=== PATIENT | female | born 1950 | race Caucasian/White ===

== ENCOUNTER → 2016-09-14 | Outpatient (REF) | payer MEDICARE | LOC: M LAB REF 13:23 | PROVIDERS: ATTEND Internal Medicine Medical Oncology | DX: C34.90 Malignant neoplasm of unspecified part of unspecified bronchus or lung (principal); Z79.899 Other long term (current) drug therapy ==

== ENCOUNTER 2017-10-03 09:28 | Outpatient (CLI) | payer MEDICARE, OTHER ==
[2017-10-03] MEDS: SODIUM CHLORIDE 0.9% INJ 10 ML SYR IV (09:53)
== END 2017-10-03 10:00 | disposition home or self-care (01) ==
LOC: M INFU 09:28
DX: Z85.118 Personal history of other malignant neoplasm of bronchus and lung (principal); Z79.82 Long term (current) use of aspirin; Z79.899 Other long term (current) drug therapy
CPT/HCPCS: 96523

== ENCOUNTER → 2020-06-26 | Outpatient (REF) | payer MEDICARE, OTHER ==
[~2020-06-26] MED LIST: ANOR1AER PO; ARMO180T PO; ASPI325T57 PO; CALC500T60 PO; D400400C PO; DICL1GEL3 TD; DUEX800T PO; EMLA2.5C; FLUO1SOL EX; PROV108A INH; REST30CA PO; SILV1CRE60 TOP; SYMB16INH INH; ULTR50TA8 PO; XARE20TA PO; ZETI10TA16 PO
[2020-06-26 17:47] LABS: BACTERIA, URINE AUTO NEGATIVE (NEGATIVE); MUCUS, URINE SMALL (NEGATIVE); RBC, URINE AUTO 6 /HPF (0-3); SQUAMOUS EPITHELIAL CELL UR AU 1 /HPF (0-6); WBC, URINE AUTO 4 /HPF (0-3)
== END ==
LOC: M SMT 17:03
PROVIDERS: ATTEND Specialist
DX: R39.15 Urgency of urination (principal); R35.0 Frequency of micturition; R39.14 Feeling of incomplete bladder emptying
CPT/HCPCS: 51798; 87086; G0463

== ENCOUNTER → 2020-07-11 | Outpatient (CLI) | payer MEDICARE, OTHER ==
[~2020-07-11] MED LIST changes: +ISOVUE-370 76% 100ML VIAL As Ordered ONE
--- NOTE | 2020-07-11 14:21 | REP ---
INDICATION: LUNG CA. COMPARISON: None TECHNIQUE: Axial contrast-enhanced images from the lung bases to the pubic symphysis using 100 cc Isovue 370 intravenous contrast material. Delayed images of the abdomen obtained along with coronal and sagittal reformations. This CT examination was performed using the following dose reduction techniques: Automated exposure control, adjustment of mA and/or kv according to the patient's size, and the use of iterative reconstruction technique. FINDINGS: Liver, spleen, pancreas, gallbladder, bilateral adrenal glands and right kidney are normal. Incidental 1 cm left renal cyst noted. The enteric system including stomach, small, and large bowel appears normal. No evidence for obstruction or acute inflammatory process. Normal terminal ileum and appendix are identified in the right lower quadrant. Sigmoid diverticulosis noted without acute diverticulitis. Pelvis demonstrates normal bladder and evidence for prior hysterectomy. No ascites. No free air. No intraperitoneal or retroperitoneal adenopathy. Abdominal aorta and vasculature demonstrate atherosclerotic changes without aneurysm or dissection. Musculoskeletal structures are intact and without acute osseous abnormality. IMPRESSION: No acute abdominopelvic pathology appreciated. Diverticulosis without acute diverticulitis. 1 cm left renal cyst. No ascites, focal inflammatory stranding, or adenopathy. <Electronically signed by Kennedy Wu > 07/11/20 [id number]
--- NOTE | 2020-07-11 14:23 | REP ---
INDICATION: LUNG CA. COMPARISON: None. TECHNIQUE: Axial CT images with multiplanar reformations. FINDINGS: The oropharynx, nasopharynx, hypopharynx and larynx are unremarkable. No mass lesions or evidence of lymphadenopathy. No evidence of osseous metastases. There is mucosal retention cyst at the floor of the right maxillary sinus, paranasal sinuses and mastoid air cells are clear. There is degenerative change with slight anterolisthesis of C3 over C4. No high-grade canal stenosis. Osteophytes narrow the neural foramen, greater on the left, mild and [id number]. Facet hypertrophy noted at C3-4 on the left and C4-5 on the left. The vertebral arteries are codominant codominant and present throughout their cervical course. The common and internal carotid arteries widely patent. No evidence of a carotid stenosis. Severe emphysematous changes are seen at the lung apices bilaterally. IMPRESSION: No mass lesions or abnormal enhancement. No lymphadenopathy. No osseous metastases. Degenerative changes of the cervical spine. Emphysema. <Electronically signed by Victoriano Rojas > 07/11/20 [id number]
== END ==
LOC: M RAD 13:41
PROVIDERS: ATTEND Specialist
DX: C34.90 Malignant neoplasm of unspecified part of unspecified bronchus or lung (principal); M50.320 Other cervical disc degeneration, mid-cervical region, unspecified level; J43.9 Emphysema, unspecified; K57.30 Diverticulosis of large intestine without perforation or abscess without bleeding; N28.1 Cyst of kidney, acquired
CPT/HCPCS: 70491; 71260; 74177; Q9967

== ENCOUNTER → 2020-08-20 | Outpatient (REF) | payer MEDICARE, OTHER ==
[~2020-08-20] MED LIST changes: -ISOVUE-370 76% 100ML VIAL As Ordered ONE
[2020-08-20 18:17] LABS: HEMATOCRIT 41.5 % (36.0-47.0); HEMOGLOBIN 13.2 g/dl (12.0-15.5); MEAN CORPUSCULAR HEMOGLOBIN 30.9 pg (27.0-33.0); MEAN CORPUSCULAR HGB CONC 31.8 g/dl (32.0-36.5); MEAN CORPUSCULAR VOLUME 97.2 fl (80.0-96.0); PLATELET COUNT, AUTOMATED 223 10^3/uL (150-450); RED BLOOD COUNT 4.27 10^6/uL (4.00-5.40); WHITE BLOOD COUNT 4.9 10^3/uL (4.0-10.0)
[2020-08-20 18:57] LABS: ALBUMIN 3.7 GM/DL (3.2-5.2); ALT/SGPT 20 U/L (12-78); BILIRUBIN,TOTAL 0.4 MG/DL (0.2-1.0); BLOOD UREA NITROGEN 18 MG/DL (7-18); CALCIUM LEVEL 9.8 MG/DL (8.8-10.2); CARBON DIOXIDE LEVEL 30 MEQ/L (21-32); CHLORIDE LEVEL 107 MEQ/L (98-107); CREATININE FOR GFR 1.06 MG/DL (0.55-1.30); GLOMERULAR FILTRATION RATE 54.6 (>39); GLUCOSE, FASTING 87 MG/DL (70-100); SODIUM LEVEL 142 MEQ/L (136-145); THYROID STIMULATING HORMONE < 0.005 uIU/ML (0.358-3.740); TOTAL 25(OH) VITAMIN D 79.9 NG/ML (30.0-100.0); TOTAL PROTEIN 7.1 GM/DL (6.4-8.2); VITAMIN B12 LEVEL 262 PG/ML
[2020-08-20 18:58] LABS: FOLATE 12.4 NG/ML
== END ==
LOC: M SFHCADAM 11:40
PROVIDERS: ATTEND Physician Assistant
DX: M81.0 Age-related osteoporosis without current pathological fracture (principal); E03.9 Hypothyroidism, unspecified; J44.9 Chronic obstructive pulmonary disease, unspecified; C67.9 Malignant neoplasm of bladder, unspecified

== ENCOUNTER → 2020-08-25 | Outpatient (REF) | payer MEDICARE, OTHER ==
[~2020-08-25] MED LIST changes: +GLYCCAP PO; +OXYB10TA23 PO
== END ==
LOC: M SMT 19:06
PROVIDERS: ATTEND Urology
DX: C67.9 Malignant neoplasm of bladder, unspecified (principal)

== ENCOUNTER → 2020-09-09 | Outpatient (POV) | payer MEDICARE, OTHER ==
[~2020-09-09] VITALS: Ht 177.8 cm; Wt 61.4 kg
[2020-09-09 11:09] VITALS: BP 146/70
--- NOTE | 2020-09-10 14:15 | IRCOV ---
[facility] IR Consult Office Visit IR Consult Office Visit DATE: Sep 09, 2020 REASON FOR CONSULTATION/CHIEF COMPLAINT: Port removal. HISTORY OF PRESENT ILLNESS: 70-year-old female with prior history of lung cancer, is referred for port removal. Patient reports her port was placed at an outside hospital, in [place] in 2016. She states the port worked fine. She does still get regular flushes. No issues with the port. Her last chemotherapy was in 2017. No further therapy is planned. She sees Dr. Le and he is aware that she would like the port removed. Incidentally, patient was recently diagnosed with bladder cancer and is undergoing therapy. 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 She denies prior history of PE. ALLERGIES: Please see below. HOME MEDICATIONS: Please see below. PAST MEDICAL HISTORY: Hypercholesterolemia Hypothyroidism DVT Cerebral aneurysm Torn meniscus PAST SURGICAL HISTORY: Right chest port placed at outside hospital in 2016 Right foot surgery Hysterectomy Clipping of brain aneurysm FAMILY HISTORY: Noncontributory. SOCIAL HISTORY: Ex-smoker. Quit in 2012. Denies alcohol or drugs. REVIEW OF SYSTEMS: Otherwise negative. PHYSICAL EXAMINATION: VITAL SIGNS: Please see below. GENERAL APPEARANCE: Patient has recently lost her . She is distraught and tearful. HEENT: No scleral icterus. RESPIRATORY: Normal breathing at rest. CARDIOVASCULAR: Normal rate. Right chest port in place. No cellulitis. ABDOMEN: Non-distended. EXTREMITIES: No edema. NEUROLOGICAL: Alert and oriented. PSYCHIATRIC: Appropriate to circumstance. LABORATORY DATA: 09/01/2020 hemoglobin 12.6 hematocrit 39.1 WBC 4.1 platelets 208 sodium 142 potassium 4.4 BUN 16 creatinine 0.8 GFR greater than 60 INR 1.2 IMAGING: I personally reviewed the CT chest and CT neck from 07/11/2020. Right- sided IJ port in place. ASSESSMENT/PLAN: 70-year-old female with history of lung cancer and now bladder cancer, status post port placement at outside facility in 2016. Patient no longer follows with her surgeon and would like for us to remove this port. We discussed the risks and benefits of the procedure and patient is willing to proceed. We will schedule the patient for port removal. Patient will need to stop her Xarelto for 48 hours for this procedure, however she must clear this with the prescriber prior to stopping any blood thinning medication. I spent 30 minutes reviewing patient's records, imaging and in consultation with the patient. Thank you for this referral. Cc Dr. Le Allergies Coded Allergies: No Known Allergies (Unverified , 10/03/17) Home Medications Scheduled Budesonide/Formoterol (Symbicort 160-4.5 Mcg Inhaler), 2 PUFF INH BID, (Reported) Calcium Carbonate (Calcium Carbonate), 1,250 MG PO DAILY, (Reported) Cholecalciferol (Vitamin D3) (Vitamin D3), 1 CAP PO DAILY, (Reported) Ezetimibe (Zetia), 1 TAB PO DAILY, (Reported) Fluocinonide (Fluocinonide), 0.05 % EX BID, (Reported) Oxybutynin Chloride (Oxybutynin Chloride ER), 10 MG PO DAILY, (Reported) Rivaroxaban (Xarelto), 1 TAB PO DAILY, (Reported) Thyroid,Pork ([place] Thyroid), 1 TAB PO DAILY, (Reported) Vit B12/Folic Acid/B6/Aa No.15 (Glycotrol Capsule), 1 CAP PO DAILY, (Reported) Scheduled PRN Albuterol Sulfate (Proventil Hfa), 2 PUFF INH Q4H PRN for SOB/WHEEZING, (Reported) Temazepam (Restoril), 30 MG PO QPMP PRN for sleep, (Reported) Miscellaneous Medications [Emla], (Reported) VS, I&O, 24H, Fishbone Vital Signs/I&O Vital Signs Date Time Temp Pulse Resp B/P (MAP) Pulse Ox O2 Delivery O2 Flow Rate FiO2 09/09/20 11:09 98.9 90 20 146/70 (95) 97 Room Air PITER GONZALEZ MD Sep 10, 2020 14:15
== END ==
LOC: M IRPOV 10:45
PROVIDERS: ATTEND Radiology Diagnostic Radiology
DX: Z45.2 Encounter for adjustment and management of vascular access device (principal); C67.9 Malignant neoplasm of bladder, unspecified; E03.9 Hypothyroidism, unspecified; E78.00 Pure hypercholesterolemia, unspecified; Z79.01 Long term (current) use of anticoagulants; Z79.890 Hormone replacement therapy; Z79.899 Other long term (current) drug therapy; Z85.118 Personal history of other malignant neoplasm of bronchus and lung; Z86.718 Personal history of other venous thrombosis and embolism; Z87.891 Personal history of nicotine dependence; Z90.710 Acquired absence of both cervix and uterus; Z92.21 Personal history of antineoplastic chemotherapy

== ENCOUNTER → 2020-09-26 | Outpatient (REF) | payer MEDICARE, OTHER ==
[~2020-09-26] MED LIST changes: +CALC-190 PO; +CLIN1SOL TOP; +EQL50TAB2 PO; +LACT1TAB9 PO; +LEVO750T13 PO; +PERCTAB2 PO; +SYMB80INH INH
[2020-09-26 13:04] LABS: HEMATOCRIT 44.5 % (36.0-47.0); HEMOGLOBIN 14.4 g/dl (12.0-15.5); MEAN CORPUSCULAR HGB CONC 32.4 g/dl (32.0-36.5); MEAN CORPUSCULAR VOLUME 95.9 fl (80.0-96.0); PLATELET COUNT, AUTOMATED 240 10^3/uL (150-450); RED BLOOD COUNT 4.64 10^6/uL (4.00-5.40); WHITE BLOOD COUNT 5.3 10^3/uL (4.0-10.0)
[2020-09-26 13:14] LABS: PARTIAL THROMBOPLASTIN TIME 31.5 SECONDS (24.2-38.5); PROTHROMBIN TIME 13.4 SECONDS (12.5-14.3)
[2020-09-26 13:17] LABS: APPEARANCE, URINE CLEAR (CLEAR); BACTERIA, URINE AUTO NEGATIVE (NEGATIVE); BILIRUBIN, URINE AUTO NEGATIVE (NEGATIVE); BLOOD, URINE BLOOD 1+ (NEGATIVE); COLOR, URINE YELLOW (YELLOW); GLUCOSE, URINE (UA) AUTO NEGATIVE (NEGATIVE); KETONE, URINE AUTO NEGATIVE (NEGATIVE); LEUKOCYTE ESTERASE, URINE AUTO TRACE (NEGATIVE); NITRITE, URINE AUTO NEGATIVE (NEGATIVE); PROTEIN, URINE AUTO NEGATIVE (NEGATIVE); RBC, URINE AUTO 2 /HPF (0-3); SPECIFIC GRAVITY URINE AUTO 1.013 (1.002-1.035); SQUAMOUS EPITHELIAL CELL UR AU 1 /HPF (0-6); UROBILINOGEN, URINE AUTO 0.2 mg/dL (0.0-2.0); WBC, URINE AUTO 3 /HPF (0-3)
[2020-09-26 13:38] LABS: ALT/SGPT 25 U/L (12-78); BILIRUBIN,TOTAL 0.4 MG/DL (0.2-1.0); BLOOD UREA NITROGEN 14 MG/DL (7-18); CALCIUM LEVEL 9.6 MG/DL (8.8-10.2); CARBON DIOXIDE LEVEL 28 MEQ/L (21-32); CHLORIDE LEVEL 106 MEQ/L (98-107); CREATININE FOR GFR 0.81 MG/DL (0.55-1.30); GLOMERULAR FILTRATION RATE > 60.0 (>39); GLUCOSE, FASTING 90 MG/DL (70-100); SODIUM LEVEL 140 MEQ/L (136-145); TOTAL PROTEIN 7.9 GM/DL (6.4-8.2)
== END ==
LOC: M SFHCADAM 11:26
PROVIDERS: ATTEND Physician Assistant
DX: Z01.818 Encounter for other preprocedural examination (principal); Z79.01 Long term (current) use of anticoagulants; Z79.899 Other long term (current) drug therapy
CPT/HCPCS: 80053; 81001; 85027; 85610; 85730; 87086; G0463

== ENCOUNTER → 2020-09-29 | Outpatient (CLI) | payer MEDICARE, OTHER ==
[~2020-09-29] MED LIST changes: -CALC-190 PO; -CLIN1SOL TOP; -EQL50TAB2 PO; -LACT1TAB9 PO; -LEVO750T13 PO; -PERCTAB2 PO; -SYMB80INH INH
== END ==
LOC: M LABSMTC 10:08
PROVIDERS: ATTEND Anesthesiology
DX: Z01.818 Encounter for other preprocedural examination (principal); Z11.52 Encounter for screening for COVID-19

== ENCOUNTER → 2020-10-02 | Outpatient (CLI) | payer MEDICARE, OTHER ==
[~2020-10-02] MED LIST changes: +CALC-190 PO; +LIDOCAINE 1% MDV 20ML VIAL As Ordered ONE; +MIDAZOLAM INJ 2MG/2ML VIAL (J2250 PER 1MG) As Ordered ONE; +NS 1,000 ML IV SCH; +ceFAZolin 2 GM/D5W 50 ML IV BAG (J0690 PER 500MG) As Ordered ONE; +ceFAZolin SOD 2 GM in IV 1 EA IV ONE; +diphenhydrAMINE 50MG/ML VIAL (J1200) As Ordered ONE; +fentaNYL 100 MCG/2 ML INJECTION (J3010) As Ordered ONE
--- NOTE | 2020-10-02 11:56 | IRHP ---
[facility] IR Pre-Procedure H & P General Date of Service: Oct 02, 2020 Procedure: Same Day Surgery Interval History and Physical I have seen the patient and reviewed last H & P performed within 30 days. There is no significant interval change. History of Present Illness Chief Complaint The patient is a 70-year-old female admitted with a reason for visit of Lung Ca. PRE-PROCEDURE DIAGNOSIS: Lung cancer. Treatment complete. HEART: Normal rate. LUNGS: Normal breathing at rest. ASA Classification ASA Classification: III-Severe systemic dis. Mallampati Score: II NPO: Yes Problems with prior sedation: No Obstructive Sleep Apnea: No Plan moderate sedation Allergies Coded Allergies: No Known Allergies (Unverified , 09/19/20) Home Medications Scheduled Budesonide/Formoterol (Symbicort 160-4.5 Mcg Inhaler), 2 PUFF INH BID, (Reported) Ezetimibe (Zetia), 1 TAB PO DAILY, (Reported) Oxybutynin Chloride (Oxybutynin Chloride ER), 10 MG PO DAILY, (Reported) Rivaroxaban (Xarelto), 1 TAB PO DAILY, (Reported) Thyroid,Pork ([place] Thyroid), 1 TAB PO DAILY, (Reported) Vit B12/Folic Acid/B6/Aa No.15 (Glycotrol Capsule), 1 CAP PO DAILY, (Reported) Scheduled PRN Albuterol Sulfate (Proventil Hfa), 2 PUFF INH Q4H PRN for SOB/WHEEZING, ( Reported) Temazepam (Restoril), 30 MG PO QPMP PRN for sleep, (Reported) VS, I&O, 24H, Fishbone Vital Signs/I&O Vital Signs Date Time Temp Pulse Resp B/P (MAP) Pulse Ox O2 Delivery O2 Flow Rate FiO2 10/02/20 11:50 71 18 100 Nasal Cannula 2.0 10/02/20 10:55 98.0 PITER GONZALEZ MD Oct 02, 2020 11:56
[2020-10-02 14:17] VITALS: BP 103/57
--- NOTE | 2020-10-06 14:55 | IRPON ---
IR Postoperative Note Date Of Procedure: Oct 02, 2020 Time Of Procedure: 16:00 IR Postoperative Note IR Port Removal / Explant. IR moderate sedation. Clinical Information:Lung cancer. Treatment complete. Patient would like her port removed. Physician: Dr. Martin Procedure: The patient was advised of the benefits, risks, and alternatives of the procedure and informed consent was obtained. A time out was performed with verification of the patient's name, MRN, site of procedure, and type of procedure to be performed. The patient was positioned in the supine position on the angiographic table. The site was prepped and draped in the usual sterile fashion. Moderate sedation was performed by the physician including the presence of an independent trained RN who assisted in monitoring the patient's level of consciousness and physiological status. Following the administration of fentanyl and Versed the physician spent 30 minutes of continuous [id number] time with the patient. A slab lifting supervisor radiograph reveals a right sided port. The soft tissues overlying the port were anesthetized with lidocaine. An incision was made over the port using a 15 blade scalpel in the location of the prior incision. The catheter was then freed with blunt dissection and extracted. Pressure was applied to obtain hemostasis. The port was then freed with blunt dissection and subsequently removed. There were no signs of infection. After hemostasis was achieved, the incision was closed with interrupted deep 3-0 Vicryl sutures and subcuticular Monocryl suture followed by glue and steri-strips. The site was covered with a sterile dressing. The patient tolerated the procedure well and was returned to the PRU in stable condition. EBL:Less than 5 mL Complications:None. Conclusions: 1. Successful explant of a right-sided port. 2. No signs of infection. Thank you for this referral PITER MARTIN MD Oct 06, 2020 14:55
== END ==
LOC: M IRPRO 10:49
PROVIDERS: ATTEND Radiology Diagnostic Radiology
DX: Z45.2 Encounter for adjustment and management of vascular access device (principal); C67.9 Malignant neoplasm of bladder, unspecified; E03.9 Hypothyroidism, unspecified; E78.00 Pure hypercholesterolemia, unspecified; Z79.01 Long term (current) use of anticoagulants; Z85.118 Personal history of other malignant neoplasm of bronchus and lung; Z86.718 Personal history of other venous thrombosis and embolism; Z92.21 Personal history of antineoplastic chemotherapy
CPT/HCPCS: 36590; 99152; 99153; J0690; J1200; J2250; J3010

== ENCOUNTER 2020-10-03 07:42 | Day surgery (SDC) | payer MEDICARE, OTHER ==
[~2020-10-03] VITALS: Ht 172.7 cm; Wt 62.5 kg
[~2020-10-03 07:42] MED LIST changes: +ACETAMINOPHEN 1000MG 100ML IV BTL (OFIRMEV) (J0131 PER 10MG) As Ordered ONE; -CALC-190 PO; -LIDOCAINE 1% MDV 20ML VIAL As Ordered ONE; +LIDOCAINE 1% MDV 20ML VIAL SQ PRN; +LIDOCAINE 2% 100MG/5ML SDV (FOR ANES.) As Ordered ONE; +LR 1,000 ML IV ONE; -NS 1,000 ML IV SCH; -ceFAZolin 2 GM/D5W 50 ML IV BAG (J0690 PER 500MG) As Ordered ONE; -diphenhydrAMINE 50MG/ML VIAL (J1200) As Ordered ONE; +propofoL 200 MG/20 ML VIAL As Ordered ONE
[2020-10-03] MEDS ORDERED: CALC-190 PO (08:01)
[2020-10-03] MEDS ORDERED: SUGAMMADEX SODIUM 500 MG/5 ML VIAL (BRIDION) As Ordered ONE (10:15)
[2020-10-03] MEDS ORDERED: dexameTHASONE 4 MG/ML 1ML VIAL (J1100 PER 1MG) As Ordered ONE (10:15)
[2020-10-03] MEDS ORDERED: ROCURONIUM BROMIDE 50 MG/5 ML VIAL As Ordered ONE (10:15)
[2020-10-03] MEDS ORDERED: ONDANSETRON 4MG/2ML VIAL As Ordered ONE (10:15)
[2020-10-03] MEDS ORDERED: ePHEDrine SULFATE 25 MG/5 ML(5MG/ML) SYRINGE As Ordered ONE (10:37)
[2020-10-03] MEDS ORDERED: PHENYLephrine 500MCG 5ML (100MCG/ML) SYRINGE As Ordered ONE (10:37)
[2020-10-03] MEDS ORDERED: ACETAMINOPHEN TAB 650MG DOSE (2X325MG) PO PRN (11:50)
[2020-10-03] MEDS ORDERED: METOCLOPRAMIDE INJ 10MG/2ML VIAL (J2765 PER 1) IV PRN (11:50)
[2020-10-03] MEDS ORDERED: fentaNYL 100 MCG/2 ML INJECTION (J3010) IV PRN (11:50)
[2020-10-03] MEDS ORDERED: LR 1,000 ML IV SCH (11:50)
[2020-10-03] MEDS ORDERED: ONDANSETRON 4MG/2ML VIAL IV PRN (11:50)
[2020-10-03] MEDS: PERCOCET 5MG/325MG TAB PO PRN ×2 (11:53→12:34)
[2020-10-03 14:30] VITALS: BP 108/56
--- NOTE | 2020-10-05 06:39 | RO ---
OPERATIVE NOTE DATE OF OPERATION: 10/03/2020 PREOPERATIVE DIAGNOSES: Bladder cancer. POSTOPERATIVE DIAGNOSIS: Bladder cancer. PROCEDURE: Cystoscopy, transurethral resection of bladder tumors (between 2 and 5 cm). SURGEON: Marquez Bales MD SALESPERSON FASHION ACCESSORIES: None. ANESTHESIA: General. 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 She was brought to the operating room today for treatment. DESCRIPTION OF PROCEDURE: The patient was brought to the operating room and general anesthesia was induced. Prophylactic antibiotics were infused. She was placed in a dorsal lithotomy position, prepped and draped in the usual sterile fashion. At this point, a resectoscope was inserted in the urethral meatus and advanced into the bladder using the visual obturator. The bladder was then thoroughly examined. On the left lateral wall just above the level of the ureteral orifice, there was an approximately 3 cm collection of very somewhat flattened but reddened lesions which looked suspicious for carcinoma in situ. The cold cup biopsy forceps were utilized to resect some of these tumors. I then utilized a bipolar loop to cauterize the area of resection as well as to fulgurate the rest of the lesions in this area. Once satisfied with hemostasis and satisfied that all abnormal appearing lesions were fulgurated, the resectoscope was removed. An 18 Polish Forbes catheter was then inserted into the bladder and the balloon was filled with 10 mL sterile water. The catheter was connected to gravity drainage and this was marked the conclusion of the procedure. The patient was taken out of dorsal lithotomy position, awakened from anesthesia and transported to the recovery room in stable condition. ESTIMATED BLOOD LOSS: 5 mL COMPLICATIONS: None. SPECIMENS: Bladder tumors. PLAN: The patient will follow up in urology clinic in approximately one week for catheter removal and to discuss her pathology results. BOO
== END 2020-10-03 14:44 | disposition home or self-care (01) ==
LOC: M SDC 07:42
PROVIDERS: ATTEND Urology
DX: C67.2 Malignant neoplasm of lateral wall of bladder (principal); E03.9 Hypothyroidism, unspecified; Z79.01 Long term (current) use of anticoagulants; Z79.899 Other long term (current) drug therapy; M81.0 Age-related osteoporosis without current pathological fracture; E78.49 Other hyperlipidemia; I73.9 Peripheral vascular disease, unspecified; K57.90 Diverticulosis of intestine, part unspecified, without perforation or abscess without bleeding; Z86.718 Personal history of other venous thrombosis and embolism; Z87.891 Personal history of nicotine dependence; J44.9 Chronic obstructive pulmonary disease, unspecified; Z92.21 Personal history of antineoplastic chemotherapy; Z92.3 Personal history of irradiation; F32.9 Major depressive disorder, single episode, unspecified
CPT/HCPCS: 52235; 88305; J0131; J0690; J1100; J2250; J2370; J2405; J3010

== ENCOUNTER 2020-10-10 08:12 | Inpatient (IN) | payer MEDICARE, OTHER ==
[2020-10-10] VITALS (29 sets, daily range): BP systolic 68–89; BP diastolic 44–53
[~2020-10-10] VITALS: Ht 177.8 cm; Wt 66.0 kg
[~2020-10-10 08:12] MED LIST changes: -ACETAMINOPHEN 1000MG 100ML IV BTL (OFIRMEV) (J0131 PER 10MG) As Ordered ONE; +CALC-190 PO; -LIDOCAINE 1% MDV 20ML VIAL SQ PRN; -LIDOCAINE 2% 100MG/5ML SDV (FOR ANES.) As Ordered ONE; -LR 1,000 ML IV ONE; -MIDAZOLAM INJ 2MG/2ML VIAL (J2250 PER 1MG) As Ordered ONE; -ceFAZolin SOD 2 GM in IV 1 EA IV ONE; -fentaNYL 100 MCG/2 ML INJECTION (J3010) As Ordered ONE; -propofoL 200 MG/20 ML VIAL As Ordered ONE
[2020-10-10] MEDS ORDERED: NS 1,000 ML IV SCH ×2 (08:35→14:15)
[2020-10-10] MEDS ORDERED: CEFEPIME HCL 2 GM in D5W MINI-BAG PLUS 50 ML IV ONE (08:35)
[2020-10-10] MEDS ORDERED: ACETAMINOPHEN 650 MG SUPP PR ONE (08:35)
[2020-10-10] MEDS ORDERED: ONDANSETRON 4MG/2ML VIAL IV ONE (09:15)
[2020-10-10] MEDS: MORPHINE 2 MG/ML 1ML VIAL (J2270) IV PRN ×2 (09:24→10:16)
[2020-10-10 09:26] LABS: HEMATOCRIT 38.6 % (36.0-47.0); HEMOGLOBIN 13.3 g/dl (12.0-15.5); MEAN CORPUSCULAR HEMOGLOBIN 31.7 pg (27.0-33.0); MEAN CORPUSCULAR HGB CONC 34.5 g/dl (32.0-36.5); MEAN CORPUSCULAR VOLUME 92.1 fl (80.0-96.0); PLATELET COUNT, AUTOMATED 126 10^3/uL (150-450); RED BLOOD COUNT 4.19 10^6/uL (4.00-5.40); VENOUS BASE EXCESS -0.4 (-2.0-2.0); VENOUS O2 SATURATION 97.3 % (60.0-80.0); VENOUS PARTIAL PRESSURE CO2 26.4 mmHg (38.0-50.0); VENOUS PARTIAL PRESSURE O2 85.5 mmHg (30.0-50.0); VENOUS PH 7.518 UNITS (7.330-7.430); VENOUS STANDARD HCO3 24.1 MEQ/L; VENOUS TOTAL CO2 21.8 MEQ/L (24.0-28.0); WHITE BLOOD COUNT 2.8 10^3/uL (4.0-10.0)
[2020-10-10 09:43] LABS: INR 1.3; PARTIAL THROMBOPLASTIN TIME 24.8 SECONDS (24.2-38.5); PROTHROMBIN TIME 16.5 SECONDS (12.5-14.3)
[2020-10-10 09:50] LABS: ALBUMIN 3.4 GM/DL (3.2-5.2); ALT/SGPT 21 U/L (12-78); AMYLASE 68 U/L (25-115); BILIRUBIN,DIRECT 0.5 MG/DL (0.0-0.2); BILIRUBIN,TOTAL 1.2 MG/DL (0.2-1.0); BLOOD UREA NITROGEN 20 MG/DL (7-18); C REACTIVE PROTEIN QUANTITATIV 4.17 MG/DL (0.00-0.30); CARBON DIOXIDE LEVEL 22 MEQ/L (21-32); CHLORIDE LEVEL 109 MEQ/L (98-107); CK-MB VALUE MASS < 1.0 NG/ML (<3.6); CPK CREATINE PHOSPHOKINASE 188 U/L (26-192); GLOMERULAR FILTRATION RATE 43.1 (>39); GLUCOSE, FASTING 147 MG/DL (70-100); MB/CK RELATIVE INDEX 0.53 (< OR =4); POTASSIUM SERUM 3.9 MEQ/L (3.5-5.1); SODIUM LEVEL 141 MEQ/L (136-145); TOTAL PROTEIN 6.9 GM/DL (6.4-8.2); TROPONIN I < 0.02 NG/ML (< 0.10)
--- NOTE | 2020-10-10 09:50 | REP ---
INDICATION: SEPSIS/SHOCK. There is also history of lung carcinoma. COMPARISON: Comparison chest x-ray February 27, 2018. Comparison chest CT study July 11, 2020. TECHNIQUE: Portable upright AP chest radiograph. FINDINGS: There is some upward retraction of the left hilar region consistent with post treatment fibrosis. This is observed on CT images from July 11, 2020. A skin fold is seen projecting over the right chest. There is no evidence of pneumothorax. Interstitial and vascular markings are diffusely somewhat prominent. No definite focal infiltrate. Heart is not enlarged. EKG electrodes are seen. There is old posttraumatic deformity of the proximal humerus on the right. A mild dextroconvex thoracic spine curvature is seen. IMPRESSION: Prominent vascular and interstitial markings diffusely. Upward retraction of the left hilus post treatment for lung carcinoma. No definite focal infiltrate.. <Electronically signed by Roel Govea > 10/10/20 [id number]
[2020-10-10] MEDS ORDERED: ISOVUE-370 76% 100ML VIAL As Ordered ONE (09:55)
[2020-10-10 10:01] LABS: LYMPHOCYTES 15 % (16-44); NEUTROPHILS 84 % (28-66); PLATELET ESTIMATE NORMAL (NORMAL)
--- NOTE | 2020-10-10 10:20 | REP ---
INDICATION: altered. COMPARISON: Comparison is made with CT angiography brain images from an outside facility dated 01 January 2020.. TECHNIQUE: Helical scanning is acquired. 5 mm axial images were reformatted. Coronal MPR images were generated. FINDINGS: The preliminary digital flexographic press helper radiograph demonstrates a frontal craniotomy. Bone window settings demonstrate that this is left-sided with frontotemporal location and fixation hardware in place. There is a aneurysm clamp visible in the middle cranial fossa on the left. There is some associated spray artifact. These findings are unchanged from the January 01, 2020 prior study. Bony calvarium is otherwise intact. The visualized paranasal sinuses are clear. No intraorbital abnormality is appreciated. There is minimal generalized volume loss. No intracranial hemorrhage, infarct, mass, extra-axial fluid collection, or midline shift is appreciated. Study is otherwise unremarkable. IMPRESSION: Post left frontotemporal craniotomy with left middle cranial fossa aneurysm clip in place. Minimal generalized volume loss. No evidence of intracranial hemorrhage or other acute abnormality.. <Electronically signed by Roel Govea > 10/10/20 [id number]
[2020-10-10] MEDS ORDERED: NS 1,800 ML in IV 1 EA IV ONE (11:25)
[2020-10-10] MEDS ORDERED: SYMB80INH INH (11:30)
[2020-10-10] MEDS ORDERED: EQL50TAB2 PO (11:30)
[2020-10-10] MEDS ORDERED: PERCTAB2 PO (11:30)
--- NOTE | 2020-10-10 11:32 | REP ---
INDICATION: left abd pain COMPARISON: 07/11/2020. TECHNIQUE: CT Scan of the abdomen and pelvis was performed with intravenous administration of 100 cc of Isovue 370, without oral contrast. Sagittal and coronal reconstruction images are performed. FINDINGS: Lung bases: There are mild bibasilar fibro atelectatic changes. Liver: Normal Gallbladder: Not well distended. Spleen: Normal. Adrenals: Normal. Pancreas: There is edema in the peripancreatic fat below the tail of the pancreas.. There is no pancreatic mass or evidence of pancreatic duct dilatation. Kidneys: There is mild bilateral hydroureteronephrosis. There is moderate diffuse edema in the left Jadyn renal fat. Small and large bowel: There is sigmoid diverticulosis without evidence of acute diverticulitis. Free fluid: None. Abdominal aorta: No aneurysm or dissection. Adenopathy: There are multiple periaortic lymph nodes subcentimeter in size which are unchanged since the prior exam.. Appendix: Not inflamed. Osseous structures: There are degenerative changes of the spine without compression deformity. Pelvis: No mass. A small amount of air is seen in the urinary bladder. There is mild diffuse edema surrounding the bladder. IMPRESSION: Mild bilateral hydronephrosis. No definite renal, ureteral or bladder calculus. Small amount of air is seen in the urinary bladder, with mild surrounding edema. There is moderate left perinephric edema extending up to the tail the pancreas. I would favor that this edema is due to recent urinary tract obstruction. Underlying urinary tract inflammation/infection cannot be excluded. Pancreatitis is considered less likely and should be clinically excluded. <Electronically signed by Papi Love > 10/10/20 1120
[2020-10-10] MEDS ORDERED: ACETAMINOPHEN 325 MG TAB PO ONE (11:40)
[2020-10-10] MEDS ORDERED: IBUPROFEN 400MG TAB PO ONE (11:40)
[2020-10-10 12:09] LABS: APPEARANCE, URINE CLOUDY (CLEAR); BACTERIA, URINE AUTO NEGATIVE (NEGATIVE); BILIRUBIN, URINE AUTO NEGATIVE (NEGATIVE); BLOOD, URINE BLOOD 3+ (NEGATIVE); COLOR, URINE YELLOW (YELLOW); GLUCOSE, URINE (UA) AUTO NEGATIVE (NEGATIVE); KETONE, URINE AUTO NEGATIVE (NEGATIVE); LEUKOCYTE ESTERASE, URINE AUTO 2+ (NEGATIVE); MUCUS, URINE SMALL (NEGATIVE); NITRITE, URINE AUTO POSITIVE (NEGATIVE); PROTEIN, URINE AUTO 2+ mg/dL (NEGATIVE); RBC, URINE AUTO TNTC /HPF (0-3); SPECIFIC GRAVITY URINE AUTO 1.031 (1.002-1.035); SQUAMOUS EPITHELIAL CELL UR AU 7 /HPF (0-6); UROBILINOGEN, URINE AUTO 0.2 mg/dL (0.0-2.0); WBC, URINE AUTO TNTC /HPF (0-3)
[2020-10-10] MEDS ORDERED: MOM 30ML SUSPENSION UDC PO PRN (12:25)
[2020-10-10] MEDS ORDERED: ALBUTEROL 90 MCG/ACT 8GM HFA INHALER INH PRN (12:25)
[2020-10-10 13:24] LABS: RSV AMPLIFICATION NEGATIVE (NEGATIVE)
[2020-10-10] MEDS ORDERED: NS 1,000 ML IV ONE ×6 (13:25→16:00)
[2020-10-10] MEDS: NS 1,000 ML IV SCH ×3 (14:08→22:03)
[2020-10-10] MEDS ORDERED: VANCOMYCIN HCL 1,000 MG in IV FLUID PLACE HOLDER 1 EA IV SCH (15:35)
--- NOTE | 2020-10-10 15:54 | HPEPDOC ---
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 Bales who presented to the ED reporting sudden fever, rigors, lethargy, N/V, confusion at home that evolved since last evening into this morning and now abdominal pain primary L sided and L flank pain, without reported dysuria but dark colored urine. She reports having felt well until yesterday morning and was mostly tired but managed to be out and about with her daughter yesterday and by evening she fell ill. In the ED she is hypotensive, tachycardic reporting abdominal pain and L flank pain and mildly hypoxemic after receiving a small dose of morphine and placed on 2L NC. She has thus far had a floridly positive UA with TNTC WBCs, RBCs and 2+ leukocyte esterase, had blood cultures drawn and given empiric IV cefepime and started on 30cc/kg IVF. Thus far she has had ~5L and continues to be hypotensive with a MAP of 57 though mentation has improved and she is conversational and is now being admitted to the ICU for impending septic shock 2/2 pyelonephritis. Of note, her infusaport was taken out on 10/08 an the site about clean without any surrounding erythema. Evaluation thus far has been notable for leukopenia to 2.8, Hgb 13.3, platelets 126, lactic acid 2.2, na 141, K 3.9, Cr 1.3, LFTs wnl, lipase wnl, troponin negative, EKG with sinus tachycardia, clear CXR, head CT without acute bleeding, mass or noted acute infarct and CT A/P that was showed L perinephric edema and stranding, mild air in bladder c/w recent cystoscopy, diverticulosis and otherwise no other abnormalities. I am now admitting her to the ICU with tentative plan for TLC placement if note fluid responsive, starting leveophed for MAP goal >85 and treating her with cefepime for septic shock 2/2 pyelonephritis. PAST MEDICAL HISTORY: History of mediastinal NSCLC s/p chemo and radiation Former smoker COPD Hypothyroidism Brain aneurysms, 1 c/b bleeding s/p clipping, with 2 under surveillance Extensive LE DVT on xarelto Urothelial cancer who recently underwent cystoscopy and TURBT on 10/[address] Bales Osteoporosis HLD PAST SURGICAL HISTORY: Hysterectomy Adenoidectomy Tonsillectomy R knee arthroplasty R foot fracture surgery Routine colonoscopy Cystoscopy and TURBT Infusaport placement and removal SOCIAL HISTORY: Retired Former smoker Rare alcohol No illicit drug use FAMILY HISTORY: Father: from lung [place] ALLERGIES: Please see below. REVIEW OF SYSTEMS: 10 point ROS was negative except as noted in the HPI HOME MEDICATIONS: Please see below. PHYSICAL EXAMINATION: VITAL SIGNS: see below. Hypotensive, tachycardic, saturating well on 2L, no tachypnea, speaking in full sentences. GENERAL APPEARANCE: Ill appearing HEENT: NCAT, EOMI, anicteric, MMM CARDIOVASCULAR: Regularly rhythm, tachycardic, no noted murmurs or gallops. LUNGS: CTAB, on 2L saturating 94% ABDOMEN: Normoactive sounds, soft, tender throughout per my exam with most tenderness in LLQ and L flank. No rebound tenderness or guarding EXTREMITIES: WWP, no LE edema NEUROLOGICAL: Awake, alert and oriented x 3, clear speech, CN 3-12 intact, moving all extremities, globally feeling weak, no asymmetry. PSYCHIATRIC: AOx3 LABORATORY DATA and IMAGING: as summarized above. See below for full details MICROBIOLOGY: Please see below. 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 Bales who presented to the ED with fever, rigors, lethargy, N/V now being admitted for severe sepsis/borderline shock 2/2 pyelonephritis. PLAN: Severe sepsis/borderline sock 2/2 most likely pyelonephritis: -Giving aggressive fluids, at liter 5 currently. Very dry, with very collapsed IJ. -If no response will place TLC and start levophed for MAP goal >65 -Empiric IV cefepime, will also add vancomycin given recent instrumentation -f/u UCx, BCx -Imaging as noted above with L perinephric edema and mild bladder gas on CT A/P, clear CXR -Skin exam was not c/f cellulitis or an obvious port of entry Pyelonephritis i/s/o recent cystoscopy and TURBT -Empiric vanc and cefepime -f/u UCx -/fu BCx Lactic acidosis i/s/o infection and dehdyration -giving aggressive IVF and treat the infection as noted above Metabolic encephalopathy: 2/2 borderline septic shock 2/2 pyelonephritis -vanc and cefepime empiric antibiotics -Giving aggressive IVF -CT head was without acute pathology Hypothyroidism: -continue [employer] thyroid 180mg daily History of extensive VTEs: -continue home xarelto HLD: -continue home ezetimibe Urothelial CA -s/p recent cystoscopy and TURBT with Dr. Bales, to follow up outpatient remote history of NSCLC: -To follow with heme/onc per outpatient scheduling Brain aneurysm: -CT without evidence of bleeding -Has been on stable on xarelto for years now -To continue surveillence per the outpatient neurosurgery plan History of VTEs -continue xarelto Vital Signs Vital Signs Date Time Temp Pulse Resp B/P (MAP) Pulse Ox O2 Delivery O2 Flow Rate FiO2 10/10/20 13:30 99.4 115 71/43 (52) 97 Nasal Cannula 2.0 10/10/20 11:30 21 Laboratory Data Labs 24H Laboratory Tests 2 10/10/20 09:19: Neutrophils (%) (Auto) , Nucleated Red Blood Cells % (auto) 0.0, Neutrophils 84H, Band Neutrophils 1, Lymphocytes (Manual) 15L, Red Blood Cell Morphology NORMAL, Platelet Estimate NORMAL, Prothrombin Time 16.5H, Prothromb Time International Ratio 1.30, Activated Partial Thromboplast Time 24.8L, Blood Gas Bicarbonate Standard 24.1, Venous Blood pH 7.518H, Venous Blood Partial Pressure CO2 26.4L, Venous Blood Partial Pressure O2 85.5H, Venous Blood Total Carbon Dioxide 21.8L, Venous Blood HCO3 21.0L, Venous Blood Oxygen Saturation 97.3H, Venous Blood Base Excess -0.4, Anion Gap 10, Glomerular Filtration Rate 43.1, Lactic Acid Level 2.2*H, Calcium Level 9.0, Total Bilirubin 1.2H, Direct Bilirubin 0.5H, Aspartate Amino Transf (AST/SGOT) 15, Alanine Aminotransferase (ALT/SGPT) 21, Alkaline Phosphatase 82, Total Creatine Kinase 188, Creatine Kinase MB < 1.0, Creatine Kinase MB Relative Index 0.53, Troponin I < 0.02, C- Reactive Protein, Quantitative 4.17H, Total Protein 6.9, Albumin 3.4, Albumin/Globulin Ratio 1.0L, Amylase Level 68 10/10/20 11:27: Coronavirus (COVID-19)(PCR) NEGATIVE, Influenza Type A (RT-PCR) NEGATIVE, Influenza Type B (RT-PCR) NEGATIVE, Respiratory Syncytial Virus (PCR) NEGATIVE 10/10/20 11:54: Urine Color YELLOW, Urine Appearance CLOUDYH, Urine pH 6.0, Urine Specific [place] 1.031, Urine Protein 2+H, Urine Glucose (Auto)(UA) NEGATIVE, Urine Ketones (Auto) NEGATIVE, Urine Blood 3+H, Urine Nitrite POSITIVE, Urine Bilirubin NEGATIVE, Urine Urobilinogen 0.2, Urine Leukocyte Esterase (Auto) 2+H, Urine WBC (Auto) TNTCH, Urine RBC (Auto) TNTCH, Urine Hyaline Casts (Auto) 0, Urine Bacteria (Auto) NEGATIVE, Urine Squamous Epithelial Cells 7, Urine Mucus (Auto) SMALL, Urine Sperm (Auto) 10/10/20 14:19: CBC/BMP Laboratory Tests 10/10/20 09:19 Microbiology Microbiology 10/10/20 Urine Culture, Received Pending 10/10/20 Blood Culture, Received Pending 10/10/20 Blood Culture, Received Pending Home Medications Scheduled Budesonide/Formoterol (Symbicort 80-4.5 Mcg Inhaler) 6.9 Gm Hfa.aer.ad, 2 PUFF INH BID Calcium Carbonate/Vitamin D3 (Calcium 1,000 + D3 Caplet) 1 Each Tablet, 1 TAB PO QPM Ezetimibe (Zetia) 10 Mg Tab, 10 MG PO QPM Oxybutynin Chloride (Oxybutynin Chloride ER) 10 Mg Tab.er.24, 10 MG PO QPM Rivaroxaban (Xarelto) 20 Mg Tablet, 20 MG PO QPM Thyroid,Pork ([employer] [place] Thyroid) 180 Mg Tab, 180 MG PO DAILY Vitamin B Complex (Vitamin B Complex) 1 Each Tablet, 1 TAB PO QPM Scheduled PRN Acetaminophen/Diphenhydramine (Percogesic Extra Str Caplet) 1 Each Tablet, 2 TAB PO QHS PRN for SLEEP Albuterol Sulfate (Proventil Hfa) 108 Mcg/Act Aer, 2 PUFF INH Q4H PRN for SOB/WHEEZING Temazepam (Restoril) 30 Mg Cap, 30 MG PO QHS PRN for SLEEP Allergies Coded Allergies: No Known Allergies (Unverified , 09/19/20) A-FIB/CHADSVASC A-FIB History Current/History of A-Fib/PAF?: No Current PO Anticoag Therapy: Yes Treatment Treatment ordered: Rivaroxaban LINDSAY DIALLO MD Oct 10, 2020 15:35
[2020-10-10] MEDS: VANCOMYCIN HCL 1,000 MG, VIAL MATE ADAPTER 1 EACH in NS 250 ML IV SCH (16:18)
[2020-10-10] MEDS: RIVAROXABAN 20 MG TAB (XARELTO) PO SCH (17:46)
[2020-10-10] MEDS: EZETIMIBE 10 MG TAB (ZETIA) PO SCH (18:00)
[2020-10-10] MEDS: oxyBUTYnin *DITROPAN XL* 5 MG TABCR PO SCH (18:00)
[2020-10-10] MEDS: VITAMIN B COMPLEX/VIT C CAP PO SCH (18:00)
[2020-10-10] MEDS ORDERED: VANCOMYCIN HCL 1,000 MG, VIAL MATE ADAPTER 1 EACH in NS 250 ML IV ONE (18:00)
[2020-10-10] MEDS: SYMBICORT 80/4.5MCG INHALER 6GM INH SCH (19:23)
--- NOTE | 2020-10-10 20:26 | IPNPDOC ---
Date Seen The patient was seen on 10/10/20. Progress Note SEPTIC SHOCK PLAN: Pt refused central line placement and iv levophed gtt. pt understands the risk of from septic shock without treatment, and the benefit of treatment for sepsis. pt's daughter Diandra [phone] is aware of the patient's decision, and will try to convince the patient. Surgeon dimensional inspector, Dr. Pearson, spoke with the patient for line placement, and the patient refuses to give consent despite risk of . VS, I&O, 24H, Fishbone Vital Signs/I&O Vital Signs Date Time Temp Pulse Resp B/P (MAP) Pulse Ox O2 Delivery O2 Flow Rate FiO2 10/10/20 18:45 96 77/51 (60) 90 Nasal Cannula 3.0 10/10/20 18:00 18 10/10/20 16:15 98.6 Laboratory Data 24H LABS Laboratory Tests 2 10/10/20 09:19: Neutrophils (%) (Auto) , Nucleated Red Blood Cells % (auto) 0.0, Neutrophils 84H, Band Neutrophils 1, Lymphocytes (Manual) 15L, Red Blood Cell Morphology N ORMAL, Platelet Estimate NORMAL, Prothrombin Time 16.5H, Prothromb Time International Ratio 1.30, Activated Partial Thromboplast Time 24.8L, Blood Gas Bicarbonate Standard 24.1, Venous Blood pH 7.518H, Venous Blood Partial Pressure CO2 26.4L, Venous Blood Partial Pressure O2 85.5H, Venous Blood Total Carbon Dioxide 21.8L, Venous Blood HCO3 21.0L, Venous Blood Oxygen Saturation 97.3H, Venous Blood Base Excess -0.4, Anion Gap 10, Glomerular Filtration Rate 43.1, Lactic Acid Level 2.2*H, Calcium Level 9.0, Total Bilirubin 1.2H, Direct Bilirubin 0.5H, Aspartate Amino Transf (AST/SGOT) 15, Alanine Aminotransferase (ALT/SGPT) 21, Alkaline Phosphatase 82, Total Creatine Kinase 188, Creatine Kinase MB < 1.0, Creatine Kinase MB Relative Index 0.53, Troponin I < 0.02, C- Reactive Protein, Quantitative 4.17H, Total Protein 6.9, Albumin 3.4, Albumin/Globulin Ratio 1.0L, Amylase Level 68 10/10/20 11:27: Coronavirus (COVID-19)(PCR) NEGATIVE, Influenza Type A (RT-PCR) NEGATIVE, In fluenza Type B (RT-PCR) NEGATIVE, Respiratory Syncytial Virus (PCR) NEGATIVE 10/10/20 11:54: Urine Color YELLOW, Urine Appearance CLOUDYH, Urine pH 6.0, Urine Specific [place] 1.031, Urine Protein 2+H, Urine Glucose (Auto)(UA) NEGATIVE, Urine Ketones (Auto) NEGATIVE, Urine Blood 3+H, Urine Nitrite POSITIVE, Urine Bilirubin NEGATIVE, Urine Urobilinogen 0.2, Urine Leukocyte Esterase (Auto) 2+H, Urine WBC (Auto) TNTCH, Urine RBC (Auto) TNTCH, Urine Hyaline Casts (Auto) 0, Urine Bacteria (Auto) NEGATIVE, Urine Squamous Epithelial Cells 7, Urine Mucus (Auto) SMALL, Urine Sperm (Auto) 10/10/20 14:19: Lactic Acid Followup at 4 Hours 1.9 CBC/BMP Laboratory Tests 10/10/20 09:19 Microbiology Microbiology 10/10/20 Urine Culture, Received Pending 10/10/20 Blood Culture, Received Pending 10/10/20 Blood Culture, Received Pending CHRIS BALBUENA MD Oct 10, 2020 20:26
[2020-10-10] MEDS: CALCIUM/VITAMIN D 500 MG TAB PO SCH (20:47)
[2020-10-10] MEDS: CEFEPIME HCL 2 GM in D5W 50 ML IV SCH (20:47)
[2020-10-11] VITALS (28 sets, daily range): BP systolic 81–120; BP diastolic 50–66
[2020-10-11] MEDS: NS 1,000 ML IV SCH ×3 (03:13→16:38)
[2020-10-11] MEDS: VANCOMYCIN HCL 1,000 MG, VIAL MATE ADAPTER 1 EACH in NS 250 ML IV SCH (03:13)
[2020-10-11 04:55] LABS: HEMATOCRIT 33.8 % (36.0-47.0); HEMOGLOBIN 10.7 g/dl (12.0-15.5); MEAN CORPUSCULAR HEMOGLOBIN 31.6 pg (27.0-33.0); MEAN CORPUSCULAR HGB CONC 31.7 g/dl (32.0-36.5); MEAN CORPUSCULAR VOLUME 99.7 fl (80.0-96.0); RED BLOOD COUNT 3.39 10^6/uL (4.00-5.40); WHITE BLOOD COUNT 22.2 10^3/uL (4.0-10.0)
[2020-10-11 05:27] LABS: PLATELET COUNT, AUTOMATED 90 10^3/uL (150-450)
[2020-10-11 05:30] LABS: CALCIUM LEVEL 6.1 MG/DL (8.8-10.2); CREATININE FOR GFR 1.37 MG/DL (0.55-1.30); GLOMERULAR FILTRATION RATE 40.6 (>39); MAGNESIUM LEVEL 1.3 MG/DL (1.8-2.4); POTASSIUM SERUM 4.2 MEQ/L (3.5-5.1)
[2020-10-11] MEDS: THYROID 30 MG TAB PO SCH (06:34)
[2020-10-11] MEDS: SYMBICORT 80/4.5MCG INHALER 6GM INH SCH ×2 (07:09→20:12)
[2020-10-11] MEDS: CEFEPIME HCL 2 GM in D5W 50 ML IV SCH ×2 (08:32→21:05)
[2020-10-11] MEDS: MAG SULF 1GM/100ML (MAG RUN) 1 GM in IV 1 EA IV SCH ×2 (08:32→09:52)
--- NOTE | 2020-10-11 11:20 | IPNPDOC ---
Text Note Date of Service The patient was seen on 10/11/20. NOTE SUBJECTIVE: -Refused TLC overnight for MAP < 65 and decided that it would be placed if she became unconscious -No acute complaints otherwise this morning, except that she and her family were upset by the TLC discussion for her septic shock that transpired overnight. -Had also been hesitant about a schwartz and nursing spoke with Dr. Bales who OK'd placement -Afebrile overnight -Reports some LLE wang pain/tenderness OBJECTIVE: VITAL SIGNS: see below. BP much improved now, BP 111/64 on my examination, saturating well on 3L, awake, alert and fully oriented, speaking in full sentences. GENERAL APPEARANCE: Ill appearing, NAD HEENT: NCAT, EOMI, anicteric, MMM CARDIOVASCULAR: Regularly rhythm, low grade tachycardia, improved, no noted murmurs or gallops. LUNGS: CTAB, on 3L saturating 93% ABDOMEN: Normoactive sounds, soft, non tender abdomen this morning, still has L flank TTP. No rebound tenderness or guarding EXTREMITIES: WWP, 1+ LE edema NEUROLOGICAL: Awake, alert and oriented x 3, clear speech, CN 3-12 intact, moving all extremities, globally feeling weak, no asymmetry. PSYCHIATRIC: AOx3 LABORATORY DATA: WBC now 22.2 Hgb 10.7 platelets 90 na 143 K 4.2 Cr 1.37 Ca 6.1 Mag 1.3 (repleted) MICROBIOLOGY: Please see below. 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 Bales who presented to the ED with fever, rigors, lethargy, N/V now being admitted for septic shock 2/2 pyelonephritis with GNR bacteremia. PLAN: Severe sepsis/borderline septic shock 2/2 pyelonephritis with GNR bacteremia: -s/p aggressive fluids, s/p 8L currently on 200cc/hr, will reduce to 100cc/hr. -MAP goal >65 -Continue IV cefepime, will also keep vancomycin given recent instrumentation until MRSA PCR is negative -f/u UCx, BCx. Thus far BCx with GNRs. Draw new BCx to document clearance -Imaging as noted above with L perinephric edema and mild bladder gas on CT A/P, clear CXR -Skin exam was not c/f cellulitis or an obvious port of entry Pyelonephritis i/s/o recent cystoscopy and TURBT -Empiric vanc and cefepime -f/u UCx -/fu BCx, prelim with GNRs -draw new BCx for documentation of clearance of bacteremia -will DC vanc at 24h if MRSA PCR negative Lactic acidosis i/s/o infection and dehdyration: resolved -s/p aggressive IVF and treat the infection as noted above Metabolic encephalopathy: 2/2 borderline septic shock 2/2 pyelonephritis: Resolved -vanc and cefepime empiric antibiotics -s/p aggressive IVF -CT head was without acute pathology Hypothyroidism: -continue [place] thyroid 180mg daily History of extensive VTEs: -continue home xarelto HLD: -continue home ezetimibe Urothelial CA -s/p recent cystoscopy and TURBT with Dr. Bales, to follow up outpatient remote history of NSCLC: -To follow with heme/onc per outpatient scheduling Brain aneurysm: -CT without evidence of bleeding -Has been on stable on xarelto for years now -To continue surveillence per the outpatient neurosurgery plan History of VTEs -continue xarelto VS,Fishbone, I+O VS, Fishbone, I+O Laboratory Tests 10/10/20 09:19 10/11/20 04:13 Vital Signs Date Time Temp Pulse Resp B/P (MAP) Pulse Ox O2 Delivery O2 Flow Rate FiO2 10/11/20 04:30 96 91/54 (66) 94 Nasal Cannula 3.0 10/11/20 04:00 98.7 22 I&O- Last 24 Hours up to 6 AM 10/11/20 05:59 Intake Total 9520 ml Output Total 1038 ml Balance 8482 ml LINDSAY DIALLO MD Oct 11, 2020 07:36
[2020-10-11] MEDS: ACETAMINOPHEN TAB 650MG DOSE (2X325MG) PO PRN (15:12)
[2020-10-11] MEDS ORDERED: MORPHINE 2 MG/ML 1ML VIAL (J2270) IV ONE (16:30)
[2020-10-11] MEDS: VITAMIN B COMPLEX/VIT C CAP PO SCH (18:00)
[2020-10-11] MEDS: oxyBUTYnin *DITROPAN XL* 5 MG TABCR PO SCH (18:18)
[2020-10-11] MEDS: RIVAROXABAN 20 MG TAB (XARELTO) PO SCH (18:18)
[2020-10-11] MEDS: EZETIMIBE 10 MG TAB (ZETIA) PO SCH (18:18)
[2020-10-11] MEDS: CALCIUM/VITAMIN D 500 MG TAB PO SCH (21:05)
--- NOTE | 2020-10-11 21:17 | ECGEPIP ---
[facility] - ED Test Date: 2020-10-10 Pat Name: MAK CONTRERAS Department: Room: [place] [address] Gender: Female Restaurant Operations Manager: MELISSA : 1950 Requested By: Seema Silverio Order Number: [id number] Reading MD: Seema Silverio Measurements Intervals [place] Rate: 150 P: IN: 120 QRS: 83 QRSD: 74 T: 86 QT: 326 QTc: 515 Interpretive Statements Sinus tachycardia Nonspecific ST and T wave abnormality No prior Electronically Signed on 10-11-2020 21:16:51 EDT by Seema Silverio
[2020-10-11] MEDS: TEMAZEPAM 15 MG CAP PO PRN (22:40)
[2020-10-12] VITALS (8 sets, daily range): BP systolic 92–129; BP diastolic 51–67
[2020-10-12] MEDS: NS 1,000 ML IV SCH (02:05)
[2020-10-12 04:50] LABS: HEMATOCRIT 32.2 % (36.0-47.0); HEMOGLOBIN 10.4 g/dl (12.0-15.5); MEAN CORPUSCULAR HGB CONC 32.3 g/dl (32.0-36.5); MEAN CORPUSCULAR VOLUME 96.1 fl (80.0-96.0); PLATELET COUNT, AUTOMATED 100 10^3/uL (150-450); RED BLOOD COUNT 3.35 10^6/uL (4.00-5.40); WHITE BLOOD COUNT 20.5 10^3/uL (4.0-10.0)
[2020-10-12 05:10] LABS: BLOOD UREA NITROGEN 20 MG/DL (7-18); CALCIUM LEVEL 6.5 MG/DL (8.8-10.2); CARBON DIOXIDE LEVEL 17 MEQ/L (21-32); CHLORIDE LEVEL 119 MEQ/L (98-107); CREATININE FOR GFR 0.84 MG/DL (0.55-1.30); GLOMERULAR FILTRATION RATE > 60.0 (>39); GLUCOSE, FASTING 79 MG/DL (70-100); POTASSIUM SERUM 3.9 MEQ/L (3.5-5.1); SODIUM LEVEL 144 MEQ/L (136-145)
[2020-10-12] MEDS: THYROID 30 MG TAB PO SCH (07:01)
[2020-10-12] MEDS: SYMBICORT 80/4.5MCG INHALER 6GM INH SCH ×2 (07:57→19:37)
[2020-10-12] MEDS: LevoFLOXacin IV 750 MG in IV 1 EA IV SCH (08:47)
[2020-10-12 08:49] LABS: MAGNESIUM LEVEL 2.1 MG/DL (1.8-2.4)
[2020-10-12] MEDS ORDERED: FUROSEMIDE 20MG/2ML VIAL (J1940) IV ONE (11:00)
--- NOTE | 2020-10-12 11:03 | REP ---
INDICATION: fluid overload?. COMPARISON: Comparison chest x-ray October 10, 2020. TECHNIQUE: Portable upright AP chest radiograph. FINDINGS: EKG electrodes and oxygen delivery tubing are seen. There are bilateral pleural effusions right greater than left. Vascular congestion and diffuse mild interstitial edema is present. Heart size is near the upper range of normal in size. There is upward retraction of the left hilus as before.. IMPRESSION: Small bilateral pleural effusions right greater than left. Vascular congestion and interstitial edema pattern consistent with the history of possible volume overload or CHF.. <Electronically signed by Roel Govea > 10/12/20 [id number]
--- NOTE | 2020-10-12 14:19 | IPNPDOC ---
Text Note Date of Service The patient was seen on 10/12/20. NOTE SUBJECTIVE: -Febrile overnight -Had some LLQ pain yesterday afternoon OBJECTIVE: VITAL SIGNS: see below. NAD GENERAL APPEARANCE: Ill appearing, NAD HEENT: NCAT, EOMI, anicteric, MMM CARDIOVASCULAR: Regularly rhythm, low grade tachycardia, improved, no noted murmurs or gallops. LUNGS: CTAB, on 2L saturating 96% ABDOMEN: Normoactive sounds, soft, LLQ TTP and L flank pain. No rebound tenderness or guarding EXTREMITIES: WWP, 2+ LE edema NEUROLOGICAL: Awake, alert and oriented x 3, clear speech, CN 3-12 intact, moving all extremities, globally feeling weak, no asymmetry. 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 Bales who presented to the ED with fever, rigors, lethargy, N/V now being admitted for septic shock 2/2 pyelonephritis with Klebs and E.fecalis, with Klebs bacteremia. PLAN: Severe sepsis/borderline septic shock 2/2 Klabs and E.fecalis pyelonephritis with Klebs bacteremia: -s/p aggressive fluids, s/p 8L. Will dc fluids now that BP has normalized. -MAP goal >65 -Discontinue IV cefepime and switch to levaquin IB 750mg Q24H -f/u / BCx to document clearance -Imaging as noted above with L perinephric edema and mild bladder gas on CT A/P, clear CXR -Skin exam was not c/f cellulitis or an obvious port of entry Klebs and E.fecalis Pyelonephritis i/s/o recent cystoscopy and TURBT -switching abx to levaquin -f/u 7/24 BCx Lactic acidosis i/s/o infection and dehdyration: resolved -s/p aggressive IVF and treat the infection as noted above Metabolic encephalopathy: 2/2 borderline septic shock 2/2 pyelonephritis: Resolved -Levaquin as noted above -s/p aggressive IVF -CT head was without acute pathology Hypothyroidism: -continue [place] thyroid 180mg daily History of extensive VTEs: -continue home xarelto HLD: -continue home ezetimibe Urothelial CA -s/p recent cystoscopy and TURBT with Dr. Bales, to follow up outpatient -has schwartz in place at this time draining now clearing yellow urine remote history of NSCLC: -To follow with heme/onc per outpatient scheduling Brain aneurysm: -CT without evidence of bleeding -Has been on stable on xarelto for years now -To continue surveillence per the outpatient neurosurgery plan History of VTEs -continue xarelto Hypoxemia i/s/o volume overload i/s/o aggressive fluids for severe septic borderline shock s/p 8L + of fluids -DC IVF -lasix 20 IV -strict I/Os VS,Fishbone, I+O VS, Fishbone, I+O Laboratory Tests 10/12/20 04:28 Vital Signs Date Time Temp Pulse Resp B/P (MAP) Pulse Ox O2 Delivery O2 Flow Rate FiO2 10/12/20 08:00 100.2 111 20 129/65 (86) 90 Nasal Cannula 2.0 I&O- Last 24 Hours up to 6 AM 10/12/20 06:00 Intake Total 2480 ml Output Total 710 ml Balance 1770 ml LINDSAY DIALLO MD Oct 12, 2020 08:29
[2020-10-12] MEDS ORDERED: ONDANSETRON 4MG/2ML VIAL IV PRN ×2 (15:25→15:30)
[2020-10-12] MEDS: ACETAMINOPHEN TAB 650MG DOSE (2X325MG) PO PRN ×2 (15:41→21:54)
[2020-10-12] MEDS: VITAMIN B COMPLEX/VIT C CAP PO SCH (18:00)
[2020-10-12] MEDS: EZETIMIBE 10 MG TAB (ZETIA) PO SCH (18:00)
[2020-10-12] MEDS: oxyBUTYnin *DITROPAN XL* 5 MG TABCR PO SCH (18:05)
[2020-10-12] MEDS: RIVAROXABAN 20 MG TAB (XARELTO) PO SCH (18:05)
[2020-10-12] MEDS: CALCIUM/VITAMIN D 500 MG TAB PO SCH (21:46)
[2020-10-12] MEDS: TEMAZEPAM 15 MG CAP PO PRN (23:12)
[2020-10-13] VITALS: BP 114/62
[2020-10-13 04:00] VITALS: BP 116/60
[2020-10-13 05:38] LABS: HEMATOCRIT 32.8 % (36.0-47.0); HEMOGLOBIN 10.8 g/dl (12.0-15.5); MEAN CORPUSCULAR HGB CONC 32.9 g/dl (32.0-36.5); MEAN CORPUSCULAR VOLUME 94.3 fl (80.0-96.0); PLATELET COUNT, AUTOMATED 101 10^3/uL (150-450); RED BLOOD COUNT 3.48 10^6/uL (4.00-5.40); WHITE BLOOD COUNT 18.2 10^3/uL (4.0-10.0)
[2020-10-13 06:06] LABS: BLOOD UREA NITROGEN 15 MG/DL (7-18); CALCIUM LEVEL 7.3 MG/DL (8.8-10.2); CARBON DIOXIDE LEVEL 23 MEQ/L (21-32); CHLORIDE LEVEL 114 MEQ/L (98-107); CREATININE FOR GFR 0.69 MG/DL (0.55-1.30); GLOMERULAR FILTRATION RATE > 60.0 (>39); GLUCOSE, FASTING 74 MG/DL (70-100); POTASSIUM SERUM 3.6 MEQ/L (3.5-5.1); SODIUM LEVEL 142 MEQ/L (136-145)
[2020-10-13] MEDS: THYROID 30 MG TAB PO SCH (07:00)
[2020-10-13] MEDS: SYMBICORT 80/4.5MCG INHALER 6GM INH SCH ×2 (07:30→20:40)
[2020-10-13 07:40] VITALS: BP 119/59
[2020-10-13] MEDS: LevoFLOXacin IV 750 MG in IV 1 EA IV SCH (09:19)
[2020-10-13] MEDS: FUROSEMIDE 20MG/2ML VIAL (J1940) IV SCH (09:20)
[2020-10-13 11:54] VITALS: BP 123/60
--- NOTE | 2020-10-13 12:13 | IPNPDOC ---
Text Note Date of Service The patient was seen on 10/13/20. NOTE SUBJECTIVE: -No acute complaints, on 2L NC OBJECTIVE: VITAL SIGNS: see below. NAD GENERAL APPEARANCE: Ill appearing, NAD HEENT: NCAT, EOMI, anicteric, MMM CARDIOVASCULAR: Regularly rhythm, low grade tachycardia, improved, no noted murmurs or gallops. LUNGS: CTAB, on 2L saturating 96% ABDOMEN: Normoactive sounds, soft, LLQ TTP and L flank pain. No rebound tenderness or guarding EXTREMITIES: WWP, 1+ LE edema NEUROLOGICAL: Awake, alert and oriented x 3, clear speech, CN 3-12 intact, moving all extremities, globally feeling weak, no asymmetry. 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 Bales who presented to the ED with fever, rigors, lethargy, N/V now admitted for septic shock 2/2 pyelonephritis with Klebs and E.fecalis, with Klebs bacteremia. PLAN: Severe sepsis/borderline septic shock 2/2 Klabs and E.fecalis pyelonephritis with Klebs bacteremia: resolved -s/p aggressive fluids, s/p 8L. -MAP goal >65 -levaquin IB 750mg Q24H, day 3 since clearance of bacteremia -f/u 10/11 BCx NGTD -Imaging as noted above with L perinephric edema and mild bladder gas on CT A/P, clear CXR -Skin exam was not c/f cellulitis or an obvious port of entry Klebs and E.fecalis Pyelonephritis i/s/o recent cystoscopy and TURBT -levaquin as ntoed above -f/u /24 BCx NGTD Lactic acidosis i/s/o infection and dehdyration: resolved -s/p aggressive IVF and treat the infection as noted above Metabolic encephalopathy: 2/2 borderline septic shock 2/2 pyelonephritis: Resolved -Levaquin as noted above -s/p aggressive IVF -CT head was without acute pathology Hypothyroidism: -continue [place] thyroid 180mg daily History of extensive VTEs: -continue home xarelto HLD: -continue home ezetimibe Urothelial CA -s/p recent cystoscopy and TURBT with Dr. Bales, to follow up outpatient -has schwartz in place at this time draining now clearing yellow urine remote history of NSCLC: -To follow with heme/onc per outpatient scheduling Brain aneurysm: -CT without evidence of bleeding -Has been on stable on xarelto for years now -To continue surveillence per the outpatient neurosurgery plan History of VTEs -continue xarelto Hypoxemia i/s/o volume overload i/s/o aggressive fluids for severe septic borderline shock s/p 8L + of fluids -s/p 8+ L of fluids -lasix 20 IV QD -strict I/Os -supplemental oxygen VS,Fishbone, I+O VS, Fishbone, I+O Laboratory Tests 10/13/20 05:16 Vital Signs Date Time Temp Pulse Resp B/P (MAP) Pulse Ox O2 Delivery O2 Flow Rate FiO2 10/13/20 07:40 98.4 92 18 119/59 (79) 92 Nasal Cannula 3.0 I&O- Last 24 Hours up to 6 AM 10/13/20 06:00 Intake Total 240 ml Output Total 2500 ml Balance -2260 ml LINDSAY DIALLO MD Oct 13, 2020 08:51
[2020-10-13 16:00] VITALS: BP 122/62
[2020-10-13] MEDS: ACETAMINOPHEN TAB 650MG DOSE (2X325MG) PO PRN (16:18)
[2020-10-13] MEDS: EZETIMIBE 10 MG TAB (ZETIA) PO SCH (17:27)
[2020-10-13] MEDS: oxyBUTYnin *DITROPAN XL* 5 MG TABCR PO SCH (17:27)
[2020-10-13] MEDS: VITAMIN B COMPLEX/VIT C CAP PO SCH (17:27)
[2020-10-13] MEDS: RIVAROXABAN 20 MG TAB (XARELTO) PO SCH (17:27)
[2020-10-13 20:00] VITALS: BP 126/57
[2020-10-13] MEDS: CALCIUM/VITAMIN D 500 MG TAB PO SCH (21:00)
[2020-10-14] VITALS (8 sets, daily range): BP systolic 108–142; BP diastolic 62–76; O2SAT 92
[2020-10-14 05:45] LABS: HEMATOCRIT 32.4 % (36.0-47.0); MEAN CORPUSCULAR HEMOGLOBIN 31.3 pg (27.0-33.0); PLATELET COUNT, AUTOMATED 113 10^3/uL (150-450); RED BLOOD COUNT 3.52 10^6/uL (4.00-5.40); WHITE BLOOD COUNT 11.7 10^3/uL (4.0-10.0)
[2020-10-14 06:06] LABS: BLOOD UREA NITROGEN 15 MG/DL (7-18); CALCIUM LEVEL 7.6 MG/DL (8.8-10.2); CARBON DIOXIDE LEVEL 26 MEQ/L (21-32); CHLORIDE LEVEL 110 MEQ/L (98-107); CREATININE FOR GFR 0.57 MG/DL (0.55-1.30); GLOMERULAR FILTRATION RATE > 60.0 (>39); GLUCOSE, FASTING 86 MG/DL (70-100); POTASSIUM SERUM 3.2 MEQ/L (3.5-5.1); SODIUM LEVEL 142 MEQ/L (136-145)
[2020-10-14] MEDS ORDERED: POTASSIUM CHLORIDE 10 MEQ SR TABLET PO ONE (07:15)
[2020-10-14] MEDS: THYROID 30 MG TAB PO SCH (07:29)
[2020-10-14] MEDS: SYMBICORT 80/4.5MCG INHALER 6GM INH SCH ×2 (07:38→20:09)
[2020-10-14] MEDS: LevoFLOXacin IV 750 MG in IV 1 EA IV SCH (08:44)
[2020-10-14] MEDS: FUROSEMIDE 20MG/2ML VIAL (J1940) IV SCH (08:45)
[2020-10-14] MEDS: DOCUSATE SODIUM 100MG CAPSULE PO SCH ×2 (09:00→21:00)
--- NOTE | 2020-10-14 12:21 | IPNPDOC ---
Subjective Date Seen The patient was seen on 10/14/20. Subjective Chief Complaint/HPI Feels better today. Has been tolerating regular diet since yesterday. As per nursing has been moving in and out of the bathroom. Has cleared PT Objective Physical Examination General Exam: Positive: Alert, Cooperative, No Acute Distress Eye Exam: Positive: PERRLA, Conjunctiva & lids normal, EOMI; Negative: Sclera icteric ENT Exam: Positive: Atraumatic, Mucous membr. moist/pink, Pharynx Normal Neck Exam: Positive: Supple; Negative: JVD, thyromegaly Chest Exam: Positive: Clear to auscultation, Normal air movement Heart Exam: Positive: Rate Normal, Regular Rhythm, Normal S1, Normal S2; Negative: Murmurs, Rubs Abdomen Exam: Positive: Normal bowel sounds, Soft; Negative: Tenderness, Hepatospenomegaly Extremity Exam: Negative: Clubbing, Cyanosis, Edema Assessment /Plan Assessment 70 yo W former smoker, with a remote history of mediastinal NSCLC s/p chemo and radiation, COPD, hypothyroidism history of brain aneurysm c/b bleeding s/p clipping with 2 under surveillance, 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 Bales and catheter was removed on 10/08/2020 who presented to the ED on 10/10/2020 with fever, rigors, lethargy, N/V. She was found to be in septic shock 2/2 pyelonephritis with Klebs and E.fecalis, with Klebs bacteremia. Gram-negative bacteremia From pyelonephritis Continue levofloxacin Severe sepsis with borderline septic shock Due to pyelonephritis and gram-negative bacteremia Needed 8 L of fluid resuscitation Now resolved Continue levaquin Hypoxemia Due to volume overload i/s/o aggressive fluids for severe septic borderline shock s/p 8L + of fluids Continue Lasix having good response We will try to wean oxygen Klebs and E.fecalis Pyelonephritis i/s/o recent cystoscopy and TURBT levaquin Lactic acidosis i/s/o infection and dehdyration: resolved Metabolic encephalopathy: 2/2 borderline septic shock 2/2 pyelonephritis: Resolved Hypothyroidism: continue Snelling thyroid 180mg daily History of extensive VTEs: continue home xarelto HLD: continue home ezetimibe Urothelial CA s/p recent cystoscopy and TURBT with Dr. Bales, to follow up outpatient Remote history of NSCLC: To follow with heme/onc per outpatient scheduling History of brain aneurysm: CT without evidence of bleeding Has been on stable on xarelto for years now To continue surveillence per the outpatient neurosurgery plan Plan/VTE VTE Prophylaxis Ordered?: Yes VS, I&O, 24H, Fishbone Vital Signs/I&O Vital Signs Date Time Temp Pulse Resp B/P (MAP) Pulse Ox O2 Delivery O2 Flow Rate FiO2 10/14/20 11:55 96.3 91 16 108/68 (81) 94 Nasal Cannula 3.0 10/14/20 04:00 31 I&O- Last 24 Hours up to 6 AM 10/14/20 05:59 Intake Total 1390 ml Output Total 4289 ml Balance -2899 ml Laboratory Data 24H LABS Laboratory Tests 2 10/14/20 05:18: Nucleated Red Blood Cells % (auto) 0.0, Anion Gap 6L, Glomerular Filtration Rate > 60.0, Calcium Level 7.6L CBC/BMP Laboratory Tests 10/14/20 05:18 Microbiology Microbiology 10/11/20 Blood Culture - Preliminary, Resulted No Growth after 72 hours. All specime... 10/10/20 Urine Culture - Final, Complete Klebsiella Pneumoniae Enterococcus Faecalis 10/10/20 Blood Culture - Final, Complete Klebsiella Pneumoniae 10/10/20 Blood Culture - Final, Complete Klebsiella Pneumoniae RISA AMADOR MD Oct 14, 2020 12:21
[2020-10-14] MEDS: VITAMIN B COMPLEX/VIT C CAP PO SCH (18:00)
[2020-10-14] MEDS: RIVAROXABAN 20 MG TAB (XARELTO) PO SCH (18:17)
[2020-10-14] MEDS: oxyBUTYnin *DITROPAN XL* 5 MG TABCR PO SCH (18:17)
[2020-10-14] MEDS: EZETIMIBE 10 MG TAB (ZETIA) PO SCH (18:17)
[2020-10-14] MEDS: CALCIUM/VITAMIN D 500 MG TAB PO SCH (21:00)
[2020-10-14] MEDS: TEMAZEPAM 15 MG CAP PO PRN (21:44)
[2020-10-14] MEDS: CLINDAMYCIN TOP 1% SOLN 60 ML BTL TOP SCH (21:45)
[2020-10-15 06:00] VITALS: BP 113/63
[2020-10-15] MEDS: THYROID 30 MG TAB PO SCH (06:00)
[2020-10-15] MEDS ORDERED: LevoFLOXacin 750 MG TABLET PO SCH (06:00)
[2020-10-15 06:14] LABS: HEMATOCRIT 33.2 % (36.0-47.0); HEMOGLOBIN 11.2 g/dl (12.0-15.5); MEAN CORPUSCULAR HEMOGLOBIN 31.1 pg (27.0-33.0); MEAN CORPUSCULAR HGB CONC 33.7 g/dl (32.0-36.5); MEAN CORPUSCULAR VOLUME 92.2 fl (80.0-96.0); PLATELET COUNT, AUTOMATED 138 10^3/uL (150-450); WHITE BLOOD COUNT 9.2 10^3/uL (4.0-10.0)
[2020-10-15 06:33] LABS: BLOOD UREA NITROGEN 12 MG/DL (7-18); CALCIUM LEVEL 7.9 MG/DL (8.8-10.2); CARBON DIOXIDE LEVEL 27 MEQ/L (21-32); CHLORIDE LEVEL 109 MEQ/L (98-107); CREATININE FOR GFR 0.54 MG/DL (0.55-1.30); GLOMERULAR FILTRATION RATE > 60.0 (>39); GLUCOSE, FASTING 92 MG/DL (70-100); POTASSIUM SERUM 3.1 MEQ/L (3.5-5.1); SODIUM LEVEL 142 MEQ/L (136-145)
[2020-10-15] MEDS ORDERED: POTASSIUM CHLORIDE 10 MEQ SR TABLET PO ONE (07:10)
[2020-10-15] MEDS: SYMBICORT 80/4.5MCG INHALER 6GM INH SCH (07:39)
[2020-10-15] MEDS: DOCUSATE SODIUM 100MG CAPSULE PO SCH (08:16)
[2020-10-15] MEDS: CLINDAMYCIN TOP 1% SOLN 60 ML BTL TOP SCH (08:17)
[2020-10-15] MEDS: FUROSEMIDE 20MG/2ML VIAL (J1940) IV SCH (08:17)
[2020-10-15] MEDS ORDERED: POTASSIUM CHLORIDE 10 MEQ SR TABLET PO SCH (09:00)
[2020-10-15 09:30] VITALS: O2SAT 92
[2020-10-15] MEDS ORDERED: CLIN1SOL TOP (12:46)
[2020-10-15] MEDS ORDERED: LEVO750T13 PO (12:46)
[2020-10-15] MEDS ORDERED: LACT1TAB9 PO (12:47)
--- NOTE | 2020-10-16 18:06 | DS.PDOC ---
Discharge Summary General Date of Admission Oct 10, 2020 at 12:24 Date of Discharge 10/15/20 Discharge Summary PROCEDURES PERFORMED DURING STAY: [None]. DISCHARGE DIAGNOSES: Pyelonephritis Gram-negative bacteremia Sepsis with borderline septic shock Hypoxemia due to fluid overload after fluid resuscitation Acute metabolic encephalopathy Lactic acidosis SECONDARY DIAGNOSIS: H/o mediastinal NSCLC s/p chemo and radiation, COPD, hypothyroidism H/O brain aneurysm c/b bleeding s/p clipping with 2 under surveillance, LE DVT on xarelto, Urothelial cancer who underwent cystoscopy and TURBT on 10/03/20 COMPLICATIONS/CHIEF COMPLAINT: Sepsis, Uti. 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 Bales and catheter was removed on 10/08/2020 who presented to the ED on 10/10/2020 with fever, rigors, lethargy, N/V. She was found to be in septic shock 2/2 pyelonephritis with Klebs and E.fecalis, with Klebs bacteremia. Gram-negative bacteremia From pyelonephritis Continue levofloxacin Severe sepsis with borderline septic shock Due to pyelonephritis and gram-negative bacteremia Needed 8 L of fluid resuscitation Now resolved Continue levaquin Hypoxemia Due to volume overload i/s/o aggressive fluids for severe septic borderline shock s/p 8L + of fluids Continue Lasix having good response We will try to wean oxygen Klebs and E.fecalis Pyelonephritis i/s/o recent cystoscopy and TURBT levaquin Lactic acidosis i/s/o infection and dehydration: resolved Metabolic encephalopathy: 2/2 borderline septic shock 2/2 pyelonephritis: Resolved Hypothyroidism: continue Farrell thyroid 180mg daily History of extensive VTEs: continue home xarelto HLD: continue home ezetimibe Urothelial CA s/p recent cystoscopy and TURBT with Dr. Bales, to follow up outpatient Remote history of NSCLC: To follow with heme/onc per outpatient scheduling History of brain aneurysm: CT without evidence of bleeding Has been stable on xarelto for years now To continue surveillence per the outpatient neurosurgery plan DISCHARGE MEDICATIONS: Please see below. ALLERGIES: Please see below. PHYSICAL EXAMINATION ON DISCHARGE: VITAL SIGNS: Please see below. General Exam: Positive: Alert, Cooperative, No Acute Distress Eye Exam: Positive: PERRLA, Conjunctiva & lids normal, EOMI; Negative: Sclera icteric ENT Exam: Positive: Atraumatic, Mucous membr. moist/pink, Pharynx Normal Neck Exam: Positive: Supple; Negative: JVD, thyromegaly Chest Exam: Positive: Clear to auscultation, Normal air movement Heart Exam: Positive: Rate Normal, Regular Rhythm, Normal S1, Normal S2; Negative: Murmurs, Rubs Abdomen Exam: Positive: Normal bowel sounds, Soft; Negative: Tenderness, Hepatosplenomegaly Extremity Exam: Negative: Clubbing, Cyanosis, Edema LABORATORY DATA: Please see below. ACTIVITY: [As tolerated]. DIET: As tolerated DISPOSITION: 01 Home, Self-Care. DISCHARGE INSTRUCTIONS: PMD in 1 week Urology as per outpatient schedule DISCHARGE CONDITION: [Stable]. TIME SPENT ON DISCHARGE: 35 minutes. Vital Signs/I&Os Vital Signs Date Time Temp Pulse Resp B/P (MAP) Pulse Ox O2 Delivery O2 Flow Rate FiO2 10/15/20 14:54 143 90 Room Air 10/15/20 13:10 1.0 10/15/20 06:00 98.1 16 113/63 (80) 10/14/20 04:00 31 I&O- Last 24 Hours up to 6 AM 10/16/20 06:00 Intake Total 120 ml Output Total 0 ml Balance 120 ml Microbiology Microbiology 10/11/20 Blood Culture - Final, Complete NO GROWTH AFTER 5 DAYS 10/10/20 Urine Culture - Final, Complete Klebsiella Pneumoniae Enterococcus Faecalis 10/10/20 Blood Culture - Final, Complete Klebsiella Pneumoniae 10/10/20 Blood Culture - Final, Complete Klebsiella Pneumoniae Discharge Medications Scheduled Budesonide/Formoterol (Symbicort 80-4.5 Mcg Inhaler) 6.9 Gm Hfa.aer.ad, 2 PUFF INH BID, (Reported) Calcium Carbonate/Vitamin D3 (Calcium 1,000 + D3 Caplet) 1 Each Tablet, 1 TAB PO QPM, (Reported) Clindamycin Phosphate (Clindamycin Phosphate) 1% 30ML Solution, 0 DOSE TOP BID Ezetimibe (Zetia) 10 Mg Tab, 10 MG PO QPM, (Reported) Lactobacillus Acidophilus (Acidophilus) 1 Each Tablet, 1 TAB PO BID Levofloxacin (Levofloxacin) 750 Mg Tablet, 750 MG PO DAILY@06 Oxybutynin Chloride (Oxybutynin Chloride ER) 10 Mg Tab.er.24, 10 MG PO QPM, (Reported) Rivaroxaban (Xarelto) 20 Mg Tablet, 20 MG PO QPM, (Reported) Thyroid,Pork (Farrell Thyroid) 180 Mg Tab, 180 MG PO DAILY, (Reported) Vitamin B Complex (Vitamin B Complex) 1 Each Tablet, 1 TAB PO QPM, (Reported) Scheduled PRN Acetaminophen/Diphenhydramine (Percogesic Extra Str Caplet) 1 Each Tablet, 2 TAB PO QHS PRN for SLEEP, (Reported) Albuterol Sulfate (Proventil Hfa) 108 Mcg/Act Aer, 2 PUFF INH Q4H PRN for SOB/WHEEZING, (Reported) Temazepam (Restoril) 30 Mg Cap, 30 MG PO QHS PRN for SLEEP, (Reported) Allergies Coded Allergies: No Known Allergies (Unverified , 09/19/20) RISA AMADOR MD Oct 16, 2020 18:06
== END 2020-10-15 16:21 | disposition home or self-care (01) | DRG 871 ==
LOC: EDBD 08:12 → M ED 08:12 → M ED INP 12:24 → ENRESERV 14:00 → M ICU 14:31 → M PCU 10-11 19:15 → M MSPAV 10-14 16:18
PROVIDERS: ADMIT Internal Medicine; ATTEND Internal Medicine Nephrology
DX: A41.9 Sepsis, unspecified organism (principal); G93.41 Metabolic encephalopathy; I82.409 Acute embolism and thrombosis of unspecified deep veins of unspecified lower extremity; C68.8 Malignant neoplasm of overlapping sites of urinary organs; N12 Tubulo-interstitial nephritis, not specified as acute or chronic; E87.2 Acidosis; J44.9 Chronic obstructive pulmonary disease, unspecified; E03.9 Hypothyroidism, unspecified; M81.0 Age-related osteoporosis without current pathological fracture; E78.5 Hyperlipidemia, unspecified; E86.0 Dehydration; Z87.891 Personal history of nicotine dependence; Z85.118 Personal history of other malignant neoplasm of bronchus and lung; Z92.3 Personal history of irradiation; Z79.01 Long term (current) use of anticoagulants; Z20.822 Contact with and (suspected) exposure to COVID-19; Z92.21 Personal history of antineoplastic chemotherapy; Z79.899 Other long term (current) drug therapy; R65.20 Severe sepsis without septic shock

== ENCOUNTER → 2020-10-21 | Outpatient (POV) | payer MEDICARE, OTHER ==
[~2020-10-21] VITALS: Ht 177.8 cm; Wt 60.0 kg
[~2020-10-21] MED LIST changes: +CLIN1SOL TOP; +EQL50TAB2 PO; +LACT1TAB9 PO; +LEVO750T13 PO; +PERCTAB2 PO; +SYMB80INH INH
[2020-10-21 12:45] VITALS: BP 109/55
--- NOTE | 2020-10-22 12:50 | IRPN ---
[facility] IR Progress Note IR Progress Note DATE: Oct 21, 2020 FOLLOW-UP: Patient status post port removal. Patient denies any issues at the site. ON EXAMINATION: Port removal site appears to be healing well. Steri-Strips are still in place. No redness, swelling or discharge. IMPRESSION: Doing well status post port removal. No further follow-up scheduled unless initiated by patient and/or referring provider. Thank you for this referral Allergies Coded Allergies: No Known Allergies (Unverified , 09/19/20) VS,Fishbone, I+O VS, Fishbone, I+O Vital Signs Date Time Temp Pulse Resp B/P (MAP) Pulse Ox O2 Delivery O2 Flow Rate FiO2 10/21/20 12:45 97.7 91 20 109/55 (73) 100 Room Air PITER GONZALEZ MD Oct 22, 2020 12:50
== END ==
LOC: M IRPOV 12:41
PROVIDERS: ATTEND Radiology Diagnostic Radiology
DX: Z45.2 Encounter for adjustment and management of vascular access device (principal)

== ENCOUNTER → 2020-10-23 | Outpatient (REF) | payer MEDICARE, OTHER ==
[2020-10-23 18:36] LABS: BLOOD UREA NITROGEN 16 MG/DL (7-18); CALCIUM LEVEL 8.4 MG/DL (8.8-10.2); CARBON DIOXIDE LEVEL 25 MEQ/L (21-32); CHLORIDE LEVEL 108 MEQ/L (98-107); GLOMERULAR FILTRATION RATE > 60.0 (>39); GLUCOSE, FASTING 86 MG/DL (70-100); POTASSIUM SERUM 4.7 MEQ/L (3.5-5.1); SODIUM LEVEL 140 MEQ/L (136-145)
== END ==
LOC: M SFHCADAM 14:03
PROVIDERS: ATTEND Family Medicine
DX: E87.6 Hypokalemia (principal)

== ENCOUNTER → 2020-10-27 | Outpatient (REF) | payer MEDICARE, OTHER | LOC: M SFHCADAM 12:51 | PROVIDERS: ATTEND Family Medicine | DX: R19.7 Diarrhea, unspecified (principal) ==

== ENCOUNTER → 2020-11-12 | Outpatient (REF) | payer MEDICARE, OTHER ==
[2020-11-12 17:48] LABS: HEMATOCRIT 39.7 % (36.0-47.0); HEMOGLOBIN 12.8 g/dl (12.0-15.5); MEAN CORPUSCULAR HEMOGLOBIN 31.8 pg (27.0-33.0); MEAN CORPUSCULAR HGB CONC 32.2 g/dl (32.0-36.5); MEAN CORPUSCULAR VOLUME 98.5 fl (80.0-96.0); PLATELET COUNT, AUTOMATED 234 10^3/uL (150-450); RED BLOOD COUNT 4.03 10^6/uL (4.00-5.40); WHITE BLOOD COUNT 5.5 10^3/uL (4.0-10.0)
[2020-11-12 18:14] LABS: ALBUMIN 3.5 GM/DL (3.2-5.2); ALT/SGPT 21 U/L (12-78); BILIRUBIN,TOTAL 0.3 MG/DL (0.2-1.0); BLOOD UREA NITROGEN 20 MG/DL (7-18); CALCIUM LEVEL 9.8 MG/DL (8.8-10.2); CARBON DIOXIDE LEVEL 29 MEQ/L (21-32); CHLORIDE LEVEL 107 MEQ/L (98-107); CREATININE FOR GFR 0.86 MG/DL (0.55-1.30); FREE T4 0.76 NG/DL (0.76-1.46); GLOMERULAR FILTRATION RATE > 60.0 (>39); GLUCOSE, FASTING 79 MG/DL (70-100); SODIUM LEVEL 140 MEQ/L (136-145); THYROID STIMULATING HORMONE 0.009 uIU/ML (0.358-3.740); TOTAL PROTEIN 7.2 GM/DL (6.4-8.2)
== END ==
LOC: M SFHCADAM 14:33
PROVIDERS: ATTEND Family Medicine
DX: C67.9 Malignant neoplasm of bladder, unspecified (principal); E03.9 Hypothyroidism, unspecified
CPT/HCPCS: 80053; 84439; 84443; 85027; G0463

== ENCOUNTER → 2020-11-17 | Outpatient (REF) | payer MEDICARE, OTHER ==
[2020-11-17 19:13] LABS: APPEARANCE, URINE CLOUDY (CLEAR); BACTERIA, URINE AUTO NEGATIVE (NEGATIVE); BILIRUBIN, URINE AUTO NEGATIVE (NEGATIVE); BLOOD, URINE BLOOD 1+ (NEGATIVE); CALCIUM OXALATE CRYSTALS LARGE; COLOR, URINE YELLOW (YELLOW); GLUCOSE, URINE (UA) AUTO NEGATIVE (NEGATIVE); KETONE, URINE AUTO NEGATIVE (NEGATIVE); LEUKOCYTE ESTERASE, URINE AUTO 2+ (NEGATIVE); MUCUS, URINE SMALL (NEGATIVE); NITRITE, URINE AUTO NEGATIVE (NEGATIVE); PROTEIN, URINE AUTO 1+ mg/dL (NEGATIVE); RBC, URINE AUTO 8 /HPF (0-3); SPECIFIC GRAVITY URINE AUTO 1.016 (1.002-1.035); SQUAMOUS EPITHELIAL CELL UR AU 2 /HPF (0-6); UROBILINOGEN, URINE AUTO 0.2 mg/dL (0.0-2.0); WBC, URINE AUTO 25 /HPF (0-3)
== END ==
LOC: M SFHCADAM 14:14
PROVIDERS: ATTEND Family Medicine
DX: C67.9 Malignant neoplasm of bladder, unspecified (principal); N39.0 Urinary tract infection, site not specified

== ENCOUNTER → 2020-11-25 | Outpatient (REF) | payer MEDICARE, OTHER ==
[2020-11-25 19:06] LABS: APPEARANCE, URINE CLOUDY (CLEAR); BACTERIA, URINE AUTO 2+ (NEGATIVE); BILIRUBIN, URINE AUTO NEGATIVE (NEGATIVE); BLOOD, URINE BLOOD 1+ (NEGATIVE); COLOR, URINE YELLOW (YELLOW); GLUCOSE, URINE (UA) AUTO NEGATIVE (NEGATIVE); KETONE, URINE AUTO NEGATIVE (NEGATIVE); LEUKOCYTE ESTERASE, URINE AUTO 3+ (NEGATIVE); NITRITE, URINE AUTO POSITIVE (NEGATIVE); PROTEIN, URINE AUTO 1+ mg/dL (NEGATIVE); RBC, URINE AUTO 8 /HPF (0-3); SPECIFIC GRAVITY URINE AUTO 1.014 (1.002-1.035); SQUAMOUS EPITHELIAL CELL UR AU 0 /HPF (0-6); UROBILINOGEN, URINE AUTO 0.2 mg/dL (0.0-2.0); WBC, URINE AUTO 129 /HPF (0-3)
== END ==
LOC: M SMT 16:57
PROVIDERS: ATTEND Urology
DX: C67.9 Malignant neoplasm of bladder, unspecified (principal)

== ENCOUNTER → 2020-12-02 | Outpatient (REF) | payer MEDICARE, OTHER ==
[2020-12-02 17:24] LABS: APPEARANCE, URINE CLOUDY (CLEAR); BACTERIA, URINE AUTO 1+ (NEGATIVE); BILIRUBIN, URINE AUTO NEGATIVE (NEGATIVE); BLOOD, URINE BLOOD 1+ (NEGATIVE); COLOR, URINE YELLOW (YELLOW); GLUCOSE, URINE (UA) AUTO NEGATIVE (NEGATIVE); KETONE, URINE AUTO NEGATIVE (NEGATIVE); LEUKOCYTE ESTERASE, URINE AUTO 3+ (NEGATIVE); MUCUS, URINE SMALL (NEGATIVE); NITRITE, URINE AUTO NEGATIVE (NEGATIVE); PROTEIN, URINE AUTO 1+ mg/dL (NEGATIVE); RBC, URINE AUTO 6 /HPF (0-3); SPECIFIC GRAVITY URINE AUTO 1.009 (1.002-1.035); SQUAMOUS EPITHELIAL CELL UR AU 0 /HPF (0-6); UROBILINOGEN, URINE AUTO 0.2 mg/dL (0.0-2.0); WBC, URINE AUTO TNTC /HPF (0-3)
== END ==
LOC: M SFHCADAM 13:08
PROVIDERS: ATTEND Urology
DX: C67.9 Malignant neoplasm of bladder, unspecified (principal); Z79.899 Other long term (current) drug therapy

== ENCOUNTER → 2020-12-16 | Outpatient (REF) | payer MEDICARE, OTHER ==
[2020-12-16 13:09] LABS: APPEARANCE, URINE CLEAR (CLEAR); BACTERIA, URINE AUTO NEGATIVE (NEGATIVE); BILIRUBIN, URINE AUTO NEGATIVE (NEGATIVE); BLOOD, URINE BLOOD NEGATIVE (NEGATIVE); COLOR, URINE YELLOW (YELLOW); GLUCOSE, URINE (UA) AUTO NEGATIVE (NEGATIVE); KETONE, URINE AUTO NEGATIVE (NEGATIVE); LEUKOCYTE ESTERASE, URINE AUTO NEGATIVE (NEGATIVE); NITRITE, URINE AUTO NEGATIVE (NEGATIVE); PROTEIN, URINE AUTO NEGATIVE (NEGATIVE); RBC, URINE AUTO 3 /HPF (0-3); SPECIFIC GRAVITY URINE AUTO 1.012 (1.002-1.035); SQUAMOUS EPITHELIAL CELL UR AU 0 /HPF (0-6); UROBILINOGEN, URINE AUTO 0.2 mg/dL (0.0-2.0); WBC, URINE AUTO 1 /HPF (0-3)
== END ==
LOC: M SFHCADAM 10:13
PROVIDERS: ATTEND Urology
DX: C67.9 Malignant neoplasm of bladder, unspecified (principal); R39.15 Urgency of urination

== ENCOUNTER → 2020-12-23 | Outpatient (REF) | payer MEDICARE, OTHER ==
[2020-12-23 14:23] LABS: APPEARANCE, URINE HAZY (CLEAR); BACTERIA, URINE AUTO 1+ (NEGATIVE); BILIRUBIN, URINE AUTO NEGATIVE (NEGATIVE); BLOOD, URINE BLOOD 1+ (NEGATIVE); COLOR, URINE YELLOW (YELLOW); GLUCOSE, URINE (UA) AUTO NEGATIVE (NEGATIVE); KETONE, URINE AUTO NEGATIVE (NEGATIVE); LEUKOCYTE ESTERASE, URINE AUTO 3+ (NEGATIVE); NITRITE, URINE AUTO NEGATIVE (NEGATIVE); PROTEIN, URINE AUTO NEGATIVE (NEGATIVE); RBC, URINE AUTO 15 /HPF (0-3); SPECIFIC GRAVITY URINE AUTO 1.016 (1.002-1.035); SQUAMOUS EPITHELIAL CELL UR AU 4 /HPF (0-6); UROBILINOGEN, URINE AUTO 0.2 mg/dL (0.0-2.0); WBC, URINE AUTO 9 /HPF (0-3)
== END ==
LOC: M SFHCADAM 11:09
PROVIDERS: ATTEND Urology
DX: N39.0 Urinary tract infection, site not specified (principal)

== ENCOUNTER → 2021-01-01 | Outpatient (REF) | payer MEDICARE, OTHER ==
[2021-01-01 11:36] LABS: APPEARANCE, URINE HAZY (CLEAR); BACTERIA, URINE AUTO NEGATIVE (NEGATIVE); BILIRUBIN, URINE AUTO NEGATIVE (NEGATIVE); BLOOD, URINE BLOOD 3+ (NEGATIVE); COLOR, URINE YELLOW (YELLOW); GLUCOSE, URINE (UA) AUTO NEGATIVE (NEGATIVE); KETONE, URINE AUTO TRACE mg/dL (NEGATIVE); LEUKOCYTE ESTERASE, URINE AUTO TRACE (NEGATIVE); MUCUS, URINE SMALL (NEGATIVE); NITRITE, URINE AUTO NEGATIVE (NEGATIVE); PROTEIN, URINE AUTO 1+ mg/dL (NEGATIVE); RBC, URINE AUTO 64 /HPF (0-3); SPECIFIC GRAVITY URINE AUTO 1.021 (1.002-1.035); SQUAMOUS EPITHELIAL CELL UR AU 1 /HPF (0-6); UROBILINOGEN, URINE AUTO 0.2 mg/dL (0.0-2.0); WBC, URINE AUTO 24 /HPF (0-3)
== END ==
LOC: M LABSMT 10:01 → M SFHCADAM 10:03
PROVIDERS: ATTEND Urology
DX: N39.0 Urinary tract infection, site not specified (principal)

== ENCOUNTER → 2021-01-01 | Outpatient (CLI) | payer MEDICARE, OTHER ==
--- NOTE | 2021-01-01 11:21 | REP ---
INDICATION: CHRONIC DVT OF RT LOWER EXT UNSP VEIN COMPARISON: None. TECHNIQUE: Love scale and color Doppler evaluation using linear high frequency transducer. FINDINGS: Ultrasound examination of the right lower extremity demonstrates chronic appearing nonocclusive thrombus along the wall of the proximal to mid superficial femoral vein. Normal patent appearance to the common femoral vein, mid to distal superficial femoral vein, popliteal vein and right calf veins are noted. Contralateral common femoral vein is patent. IMPRESSION: 1. Findings likely represent chronic nonocclusive thrombus in the right proximal to mid superficial femoral vein. 2. No evidence for acute occlusive thrombus. <Electronically signed by Kennedy Wu > 01/01/21 [id number]
== END ==
LOC: M RAD 10:34
PROVIDERS: ATTEND Family Medicine
DX: I82.511 Chronic embolism and thrombosis of right femoral vein (principal); N39.0 Urinary tract infection, site not specified

== ENCOUNTER → 2021-01-06 | Outpatient (REF) | payer MEDICARE, OTHER ==
[2021-01-06 13:10] LABS: APPEARANCE, URINE CLEAR (CLEAR); BACTERIA, URINE AUTO 1+ (NEGATIVE); BILIRUBIN, URINE AUTO NEGATIVE (NEGATIVE); BLOOD, URINE BLOOD 1+ (NEGATIVE); COLOR, URINE STRAW (YELLOW); GLUCOSE, URINE (UA) AUTO NEGATIVE (NEGATIVE); KETONE, URINE AUTO NEGATIVE (NEGATIVE); LEUKOCYTE ESTERASE, URINE AUTO NEGATIVE (NEGATIVE); NITRITE, URINE AUTO NEGATIVE (NEGATIVE); PROTEIN, URINE AUTO NEGATIVE (NEGATIVE); RBC, URINE AUTO 0 /HPF (0-3); SPECIFIC GRAVITY URINE AUTO 1.002 (1.002-1.035); SQUAMOUS EPITHELIAL CELL UR AU 0 /HPF (0-6); UROBILINOGEN, URINE AUTO 0.2 mg/dL (0.0-2.0); WBC, URINE AUTO 0 /HPF (0-3)
[2021-01-06 13:48] LABS: THYROID STIMULATING HORMONE < 0.005 uIU/ML (0.358-3.740)
== END ==
LOC: M SFHCADAM 11:19
PROVIDERS: ATTEND Urology
DX: C67.9 Malignant neoplasm of bladder, unspecified (principal); E03.9 Hypothyroidism, unspecified

== ENCOUNTER → 2021-01-13 | Outpatient (REF) | payer MEDICARE, OTHER ==
[2021-01-13 12:51] LABS: APPEARANCE, URINE CLEAR (CLEAR); BACTERIA, URINE AUTO NEGATIVE (NEGATIVE); BILIRUBIN, URINE AUTO NEGATIVE (NEGATIVE); BLOOD, URINE BLOOD 1+ (NEGATIVE); COLOR, URINE STRAW (YELLOW); GLUCOSE, URINE (UA) AUTO NEGATIVE (NEGATIVE); KETONE, URINE AUTO NEGATIVE (NEGATIVE); LEUKOCYTE ESTERASE, URINE AUTO NEGATIVE (NEGATIVE); NITRITE, URINE AUTO NEGATIVE (NEGATIVE); PROTEIN, URINE AUTO NEGATIVE (NEGATIVE); RBC, URINE AUTO 0 /HPF (0-3); SPECIFIC GRAVITY URINE AUTO 1.003 (1.002-1.035); SQUAMOUS EPITHELIAL CELL UR AU 0 /HPF (0-6); UROBILINOGEN, URINE AUTO 0.2 mg/dL (0.0-2.0); WBC, URINE AUTO 1 /HPF (0-3)
== END ==
LOC: M SFHCADAM 11:32
PROVIDERS: ATTEND Urology
DX: C67.9 Malignant neoplasm of bladder, unspecified (principal)

== ENCOUNTER → 2021-01-20 | Outpatient (REF) | payer MEDICARE, OTHER ==
[2021-01-20 14:06] LABS: APPEARANCE, URINE CLEAR (CLEAR); BACTERIA, URINE AUTO NEGATIVE (NEGATIVE); BILIRUBIN, URINE AUTO NEGATIVE (NEGATIVE); BLOOD, URINE BLOOD NEGATIVE (NEGATIVE); COLOR, URINE STRAW (YELLOW); GLUCOSE, URINE (UA) AUTO NEGATIVE (NEGATIVE); KETONE, URINE AUTO NEGATIVE (NEGATIVE); LEUKOCYTE ESTERASE, URINE AUTO TRACE (NEGATIVE); NITRITE, URINE AUTO NEGATIVE (NEGATIVE); PROTEIN, URINE AUTO NEGATIVE (NEGATIVE); RBC, URINE AUTO 0 /HPF (0-3); SPECIFIC GRAVITY URINE AUTO 1.004 (1.002-1.035); SQUAMOUS EPITHELIAL CELL UR AU 0 /HPF (0-6); UROBILINOGEN, URINE AUTO 0.2 mg/dL (0.0-2.0); WBC, URINE AUTO 1 /HPF (0-3)
== END ==
LOC: M LABSMT 11:12 → M SFHCADAM 11:13
PROVIDERS: ATTEND Urology
DX: C67.9 Malignant neoplasm of bladder, unspecified (principal)

== ENCOUNTER → 2021-02-18 | Outpatient (REF) | payer MEDICARE, OTHER ==
[2021-02-18 17:16] LABS: FREE T4 0.8 NG/DL (0.76-1.46); THYROID STIMULATING HORMONE 0.008 uIU/ML (0.358-3.740)
== END ==
LOC: M SFHCADAM 13:37
PROVIDERS: ATTEND Family Medicine
DX: E03.9 Hypothyroidism, unspecified (principal)

== ENCOUNTER → 2021-02-27 | Outpatient (REF) | payer MEDICARE, OTHER | LOC: M SMT 17:40 | PROVIDERS: ATTEND Urology | DX: C67.9 Malignant neoplasm of bladder, unspecified (principal) | CPT/HCPCS: 52000; 88108; G0463 ==

== ENCOUNTER → 2021-03-06 | Outpatient (CLI) | payer MEDICARE, OTHER ==
[2021-03-06 14:39] LABS: HEMATOCRIT 39.7 % (36.0-47.0); MEAN CORPUSCULAR HEMOGLOBIN 31.6 pg (27.0-33.0); MEAN CORPUSCULAR HGB CONC 32.7 g/dl (32.0-36.5); MEAN CORPUSCULAR VOLUME 96.6 fl (80.0-96.0); PLATELET COUNT, AUTOMATED 170 10^3/uL (150-450); RED BLOOD COUNT 4.11 10^6/uL (4.00-5.40); WHITE BLOOD COUNT 4.3 10^3/uL (4.0-10.0)
[2021-03-06 15:05] LABS: ALBUMIN 3.6 GM/DL (3.2-5.2); BILIRUBIN,TOTAL 0.2 MG/DL (0.2-1.0); CALCIUM LEVEL 9.7 MG/DL (8.8-10.2); CREATININE FOR GFR 1.06 MG/DL (0.55-1.30); GLOMERULAR FILTRATION RATE 54.6 (>39); POTASSIUM SERUM 3.8 MEQ/L (3.5-5.1); TOTAL PROTEIN 7.2 GM/DL (6.4-8.2)
== END ==
LOC: M LAB 13:54
PROVIDERS: ATTEND Urology
DX: C67.9 Malignant neoplasm of bladder, unspecified (principal)

== ENCOUNTER → 2021-03-06 | Outpatient (CLI) | payer MEDICARE, OTHER ==
--- NOTE | 2021-03-11 06:52 | DEXAMM ---
INDICATION: OSTEO SCREEN. COMPARISON: 05/15/2019, 04/21/2017 TECHNIQUE: Bone density was measured using dual-energy x-ray absorptionmetry (DEXA). FINDINGS: AP SPINE L1-L4 BMD 1.1 g/cm2 Young Adult T-Score -0.7 Age Matched Z-Score 1.0. LT FEMUR, TOTAL BMD 0.63 g/cm2 Young Adult T-Score -3.0 Age Matched Z-Score -1.5. LT NECK BMD 0.63 g/cm2 Young Adult T-Score -2.9 Age Matched Z-Score -1.2. RT FEMUR, TOTAL BMD 0.56 g/cm2 Young Adult T-Score X -3.5 Age Matched Z-Score -2.0. RT NECK BMD 0.60 g/cm2 Young Adult T-Score -3.1 Age Matched Z-Score -1.4. IMPRESSION: There is low bone density of the spine. There is very low bone density of the left hip. There is very low bone density of the right hip. The density of the spine has increased 7% since the initial exam on 2017. The density of the spine decreased 2% since most recent exam on 2019. The density of the left hip has increased 1% since initial exam on 2018. The density of the left hip has decreased 2% since most recent exam on 11/08/2019. FOLLOW-UP: Recommendation for the next bone density exam: 1 year. <Electronically signed by Kennedy Wu > 03/11/21 [id number]
== END ==
LOC: M WHC 11:17
PROVIDERS: ATTEND Family Medicine
DX: M81.0 Age-related osteoporosis without current pathological fracture (principal); C67.9 Malignant neoplasm of bladder, unspecified

== ENCOUNTER → 2021-03-10 | Outpatient (CLI) | payer MEDICARE, OTHER ==
[~2021-03-10] MED LIST changes: +ISOVUE-370 76% 100ML VIAL As Ordered ONE
--- NOTE | 2021-03-19 07:43 | REP ---
INDICATION: BLADDER CA. COMPARISON: 10/10/2020 TECHNIQUE: Axial precontrast, contrast-enhanced and delayed images from the lung bases to the pubic symphysis using 100 cc Isovue 370 intravenous contrast material. Coronal and sagittal reformations obtained. This CT examination was performed using the following dose reduction techniques: Automated exposure control, adjustment of mA and/or kv according to the patient's size, and the use of iterative reconstruction technique. FINDINGS: Evaluation of the urinary tract system demonstrates normal age-appropriate appearance and enhancement patterns to the bilateral kidneys as well as the collecting system on delayed images. There is no evidence for nephrolithiasis, hydronephrosis, perinephric stranding, renal cystic or mass lesion. The collecting system on delayed images demonstrates normal renal collecting systems, ureters and bladder. There is no obvious bladder pathology by CT evaluation. No perivesicular stranding, fluid, or pelvic adenopathy is identified. Liver, spleen, pancreas, gallbladder, and bilateral adrenal glands are normal. The enteric system including stomach, small, and large bowel appears normal. No evidence for obstruction or acute inflammatory process. Normal terminal ileum and appendix are identified in the right lower quadrant. Scattered sigmoid diverticula noted without acute diverticulitis. Pelvis demonstrates normal appearing bladder and evidence for prior hysterectomy. No ascites. No free air. No intraperitoneal or retroperitoneal adenopathy. Abdominal aorta and vasculature appear normal. Musculoskeletal structures are intact and without acute osseous abnormality. Lung bases are clear. IMPRESSION: 1. No acute abdominopelvic pathology appreciated. 2. Kidneys and urinary tract system including bladder appear normal by CT evaluation. 3. In comparison with prior examination the left-sided Jadyn nephric/retroperitoneal inflammatory changes have resolved. <Electronically signed by Kennedy Wu > 03/19/21 [id number]
== END ==
LOC: M RAD 14:33
PROVIDERS: ATTEND Urology
DX: C67.9 Malignant neoplasm of bladder, unspecified (principal); K57.30 Diverticulosis of large intestine without perforation or abscess without bleeding
CPT/HCPCS: 74178; Q9967

== ENCOUNTER → 2021-04-06 | Outpatient (REF) | payer MEDICARE, OTHER ==
[~2021-04-06] MED LIST changes: -ISOVUE-370 76% 100ML VIAL As Ordered ONE
[2021-04-06 12:46] LABS: APPEARANCE, URINE CLEAR (CLEAR); BACTERIA, URINE AUTO NEGATIVE (NEGATIVE); BILIRUBIN, URINE AUTO NEGATIVE (NEGATIVE); BLOOD, URINE BLOOD 1+ (NEGATIVE); COLOR, URINE STRAW (YELLOW); GLUCOSE, URINE (UA) AUTO NEGATIVE (NEGATIVE); KETONE, URINE AUTO NEGATIVE (NEGATIVE); LEUKOCYTE ESTERASE, URINE AUTO TRACE (NEGATIVE); NITRITE, URINE AUTO NEGATIVE (NEGATIVE); PROTEIN, URINE AUTO NEGATIVE (NEGATIVE); RBC, URINE AUTO 1 /HPF (0-3); SPECIFIC GRAVITY URINE AUTO 1.003 (1.002-1.035); SQUAMOUS EPITHELIAL CELL UR AU 0 /HPF (0-6); UROBILINOGEN, URINE AUTO 0.2 mg/dL (0.0-2.0); WBC, URINE AUTO 2 /HPF (0-3)
== END ==
LOC: M SMT 12:23
PROVIDERS: ATTEND Urology
DX: C67.9 Malignant neoplasm of bladder, unspecified (principal)

== ENCOUNTER → 2021-04-13 | Outpatient (REF) | payer MEDICARE, OTHER ==
[2021-04-13 13:31] LABS: APPEARANCE, URINE CLEAR (CLEAR); BACTERIA, URINE AUTO NEGATIVE (NEGATIVE); BILIRUBIN, URINE AUTO NEGATIVE (NEGATIVE); BLOOD, URINE BLOOD 1+ (NEGATIVE); COLOR, URINE STRAW (YELLOW); GLUCOSE, URINE (UA) AUTO NEGATIVE (NEGATIVE); KETONE, URINE AUTO NEGATIVE (NEGATIVE); LEUKOCYTE ESTERASE, URINE AUTO TRACE (NEGATIVE); NITRITE, URINE AUTO NEGATIVE (NEGATIVE); PROTEIN, URINE AUTO NEGATIVE (NEGATIVE); RBC, URINE AUTO 2 /HPF (0-3); SPECIFIC GRAVITY URINE AUTO 1.004 (1.002-1.035); SQUAMOUS EPITHELIAL CELL UR AU 0 /HPF (0-6); UROBILINOGEN, URINE AUTO 0.2 mg/dL (0.0-2.0); WBC, URINE AUTO 1 /HPF (0-3)
== END ==
LOC: M SFHCADAM 11:28
PROVIDERS: ATTEND Family Medicine
DX: C67.9 Malignant neoplasm of bladder, unspecified (principal)

== ENCOUNTER → 2021-05-22 | Outpatient (REF) | payer MEDICARE, OTHER ==
[~2021-05-22] MED LIST changes: +CEPH500C PO
== END ==
LOC: M SMT 17:03
PROVIDERS: ATTEND Urology
DX: C67.9 Malignant neoplasm of bladder, unspecified (principal)

== ENCOUNTER 2021-06-01 22:05 | Emergency (ER) | payer MEDICARE, OTHER ==
[~2021-06-01] VITALS: Ht 175.3 cm; Wt 63.2 kg
[~2021-06-01 22:05] MED LIST changes: -CEPH500C PO
[2021-06-01 23:25] LABS: BASO % 0.2 % (0.0-1.0); EOS # 0.1 10^3/uL (0.0-0.5); EOS % 0.5 % (0.0-3.0); HEMATOCRIT 39.1 % (36.0-47.0); LYMPH # 0.5 10^3/uL (1.5-5.0); LYMPH % 5.4 % (24.0-44.0); MEAN CORPUSCULAR HEMOGLOBIN 31.8 pg (27.0-33.0); MEAN CORPUSCULAR HGB CONC 33.2 g/dl (32.0-36.5); MEAN CORPUSCULAR VOLUME 95.6 fl (80.0-96.0); MONO # 0.7 10^3/uL (0.0-0.8); MONO % 7.1 % (2.0-8.0); NEUTROPHILS # 8.5 10^3/uL (1.5-8.5); NEUTROPHILS % 86.5 % (36.0-66.0); PLATELET COUNT, AUTOMATED 181 10^3/uL (150-450); RED BLOOD COUNT 4.09 10^6/uL (4.00-5.40); WHITE BLOOD COUNT 9.8 10^3/uL (4.0-10.0)
[2021-06-01 23:54] LABS: ALBUMIN 3.6 GM/DL (3.2-5.2); BILIRUBIN,TOTAL 0.6 MG/DL (0.2-1.0); CALCIUM LEVEL 9.2 MG/DL (8.8-10.2); CREATININE FOR GFR 1.04 MG/DL (0.55-1.30); GLOMERULAR FILTRATION RATE 55.6 (>39); POTASSIUM SERUM 4.9 MEQ/L (3.5-5.1); TOTAL PROTEIN 7.5 GM/DL (6.4-8.2)
[2021-06-01] MEDS ORDERED: NS 1,000 ML IV ONE (23:55)
[2021-06-01] MEDS ORDERED: KETOROLAC 30 MG/ML 1ML VIAL IV ONE (23:55)
[2021-06-01] MEDS ORDERED: ONDANSETRON 4MG/2ML VIAL IV ONE (23:55)
[2021-06-02 01:58] LABS: APPEARANCE, URINE CLOUDY (CLEAR); BACTERIA, URINE AUTO 1+ (NEGATIVE); BILIRUBIN, URINE AUTO NEGATIVE (NEGATIVE); BLOOD, URINE BLOOD 2+ (NEGATIVE); COLOR, URINE AMBER (YELLOW); GLUCOSE, URINE (UA) AUTO NEGATIVE (NEGATIVE); KETONE, URINE AUTO 1+ mg/dL (NEGATIVE); LEUKOCYTE ESTERASE, URINE AUTO 3+ (NEGATIVE); MUCUS, URINE SMALL (NEGATIVE); NITRITE, URINE AUTO NEGATIVE (NEGATIVE); PROTEIN, URINE AUTO 2+ mg/dL (NEGATIVE); RBC, URINE AUTO 73 /HPF (0-3); SPECIFIC GRAVITY URINE AUTO 1.034 (1.002-1.035); SQUAMOUS EPITHELIAL CELL UR AU 33 /HPF (0-6); TRANSITIONAL EPITHELIAL AUTO 1 /HPF; UROBILINOGEN, URINE AUTO 0.2 mg/dL (0.0-2.0); WBC, URINE AUTO 180 /HPF (0-3)
[2021-06-02] MEDS ORDERED: CEPH500C PO ×2 (03:19→03:47)
[2021-06-02] MEDS ORDERED: CEPHALEXIN 500 MG CAP PO ONE (03:20)
[2021-06-02 03:36] VITALS: BP 104/62
== END 2021-06-02 03:50 | disposition home or self-care (01) ==
LOC: M ED 22:05
DX: N39.0 Urinary tract infection, site not specified (principal); C67.9 Malignant neoplasm of bladder, unspecified; I48.91 Unspecified atrial fibrillation; E03.9 Hypothyroidism, unspecified; Z80.9 Family history of malignant neoplasm, unspecified; Z79.01 Long term (current) use of anticoagulants; Z79.899 Other long term (current) drug therapy
CPT/HCPCS: 71045; 80053; 81001; 83605; 85025; 87040; 87086; 87798; 96361; 96374; 96375; 99284; J1885; J2405

== ENCOUNTER → 2021-06-22 | Outpatient (REF) | payer MEDICARE, OTHER ==
[~2021-06-22] MED LIST changes: +CEPH500C PO
[2021-06-22 13:16] LABS: HEMATOCRIT 39.2 % (36.0-47.0); HEMOGLOBIN 12.8 g/dl (12.0-15.5); MEAN CORPUSCULAR HEMOGLOBIN 31.9 pg (27.0-33.0); MEAN CORPUSCULAR HGB CONC 32.7 g/dl (32.0-36.5); MEAN CORPUSCULAR VOLUME 97.8 fl (80.0-96.0); PLATELET COUNT, AUTOMATED 213 10^3/uL (150-450); RED BLOOD COUNT 4.01 10^6/uL (4.00-5.40); WHITE BLOOD COUNT 4.3 10^3/uL (4.0-10.0)
[2021-06-22 14:13] LABS: ALBUMIN 3.7 GM/DL (3.2-5.2); ALT/SGPT 21 U/L (12-78); BILIRUBIN,TOTAL 0.8 MG/DL (0.2-1.0); BLOOD UREA NITROGEN 14 MG/DL (7-18); CALCIUM LEVEL 8.9 MG/DL (8.8-10.2); CARBON DIOXIDE LEVEL 27 MEQ/L (21-32); CHLORIDE LEVEL 105 MEQ/L (98-107); CREATININE FOR GFR 0.94 MG/DL (0.55-1.30); GLOMERULAR FILTRATION RATE > 60.0 (>39); GLUCOSE, FASTING 74 MG/DL (70-100); POTASSIUM SERUM 4.2 MEQ/L (3.5-5.1); SODIUM LEVEL 138 MEQ/L (136-145); TOTAL PROTEIN 7.3 GM/DL (6.4-8.2)
== END ==
LOC: M LABDRWAD 12:31
PROVIDERS: ATTEND Urology
DX: C67.9 Malignant neoplasm of bladder, unspecified (principal); N39.0 Urinary tract infection, site not specified

== ENCOUNTER → 2021-06-22 | Outpatient (CLI) | payer MEDICARE, OTHER ==
[2021-06-22 14:08] LABS: ALBUMIN 3.8 GM/DL (3.2-5.2); ALT/SGPT 20 U/L (12-78); BILIRUBIN,TOTAL 0.4 MG/DL (0.2-1.0); BLOOD UREA NITROGEN 15 MG/DL (7-18); CALCIUM LEVEL 8.9 MG/DL (8.8-10.2); CARBON DIOXIDE LEVEL 27 MEQ/L (21-32); CHLORIDE LEVEL 105 MEQ/L (98-107); CREATININE FOR GFR 0.94 MG/DL (0.55-1.30); GLOMERULAR FILTRATION RATE > 60.0 (>39); GLUCOSE, FASTING 75 MG/DL (70-100); POTASSIUM SERUM 4.1 MEQ/L (3.5-5.1); SODIUM LEVEL 139 MEQ/L (136-145); TOTAL 25(OH) VITAMIN D 52.4 NG/ML (30.0-100.0); TOTAL PROTEIN 7.4 GM/DL (6.4-8.2)
== END ==
LOC: M ADAMS 11:02
PROVIDERS: ATTEND Internal Medicine Endocrinology, Diabetes & Metabolism
DX: M81.0 Age-related osteoporosis without current pathological fracture (principal); C67.9 Malignant neoplasm of bladder, unspecified; N39.0 Urinary tract infection, site not specified

== ENCOUNTER → 2021-06-22 | Outpatient (REF) | payer MEDICARE, OTHER ==
[2021-06-22 13:11] LABS: APPEARANCE, URINE CLEAR (CLEAR); BACTERIA, URINE AUTO NEGATIVE (NEGATIVE); BILIRUBIN, URINE AUTO NEGATIVE (NEGATIVE); BLOOD, URINE BLOOD 2+ (NEGATIVE); COLOR, URINE YELLOW (YELLOW); GLUCOSE, URINE (UA) AUTO NEGATIVE (NEGATIVE); KETONE, URINE AUTO NEGATIVE (NEGATIVE); LEUKOCYTE ESTERASE, URINE AUTO 1+ (NEGATIVE); NITRITE, URINE AUTO NEGATIVE (NEGATIVE); PROTEIN, URINE AUTO NEGATIVE (NEGATIVE); RBC, URINE AUTO 15 /HPF (0-3); SPECIFIC GRAVITY URINE AUTO 1.009 (1.002-1.035); SQUAMOUS EPITHELIAL CELL UR AU 2 /HPF (0-6); UROBILINOGEN, URINE AUTO 0.2 mg/dL (0.0-2.0); WBC, URINE AUTO 4 /HPF (0-3)
== END ==
LOC: M SFHCADAM 11:10
PROVIDERS: ATTEND Urology
DX: C67.9 Malignant neoplasm of bladder, unspecified (principal)

== ENCOUNTER → 2021-06-29 | Outpatient (REF) | payer MEDICARE, OTHER ==
[2021-06-29 13:16] LABS: APPEARANCE, URINE CLEAR (CLEAR); BACTERIA, URINE AUTO NEGATIVE (NEGATIVE); BILIRUBIN, URINE AUTO NEGATIVE (NEGATIVE); BLOOD, URINE BLOOD 1+ (NEGATIVE); COLOR, URINE STRAW (YELLOW); GLUCOSE, URINE (UA) AUTO NEGATIVE (NEGATIVE); KETONE, URINE AUTO NEGATIVE (NEGATIVE); LEUKOCYTE ESTERASE, URINE AUTO NEGATIVE (NEGATIVE); NITRITE, URINE AUTO NEGATIVE (NEGATIVE); PROTEIN, URINE AUTO NEGATIVE (NEGATIVE); RBC, URINE AUTO 0 /HPF (0-3); SPECIFIC GRAVITY URINE AUTO 1.003 (1.002-1.035); SQUAMOUS EPITHELIAL CELL UR AU 0 /HPF (0-6); UROBILINOGEN, URINE AUTO 0.2 mg/dL (0.0-2.0); WBC, URINE AUTO 0 /HPF (0-3)
== END ==
LOC: M SMT 12:30
PROVIDERS: ATTEND Urology
DX: C67.9 Malignant neoplasm of bladder, unspecified (principal)

== ENCOUNTER → 2021-07-06 | Outpatient (REF) | payer MEDICARE, OTHER ==
[2021-07-06 13:22] LABS: APPEARANCE, URINE CLEAR (CLEAR); BACTERIA, URINE AUTO NEGATIVE (NEGATIVE); BILIRUBIN, URINE AUTO NEGATIVE (NEGATIVE); BLOOD, URINE BLOOD 1+ (NEGATIVE); COLOR, URINE COLORLESS (YELLOW); GLUCOSE, URINE (UA) AUTO NEGATIVE (NEGATIVE); KETONE, URINE AUTO NEGATIVE (NEGATIVE); LEUKOCYTE ESTERASE, URINE AUTO NEGATIVE (NEGATIVE); NITRITE, URINE AUTO NEGATIVE (NEGATIVE); PROTEIN, URINE AUTO NEGATIVE (NEGATIVE); RBC, URINE AUTO 0 /HPF (0-3); SPECIFIC GRAVITY URINE AUTO 1.002 (1.002-1.035); SQUAMOUS EPITHELIAL CELL UR AU 0 /HPF (0-6); UROBILINOGEN, URINE AUTO 0.2 mg/dL (0.0-2.0); WBC, URINE AUTO 0 /HPF (0-3)
== END ==
LOC: M SMT 12:48
PROVIDERS: ATTEND Urology
DX: C67.9 Malignant neoplasm of bladder, unspecified (principal)

== ENCOUNTER → 2021-07-13 | Outpatient (CLI) | payer MEDICARE, OTHER ==
[2021-07-13 13:26] LABS: APPEARANCE, URINE CLEAR (CLEAR); BACTERIA, URINE AUTO NEGATIVE (NEGATIVE); BILIRUBIN, URINE AUTO NEGATIVE (NEGATIVE); BLOOD, URINE BLOOD 1+ (NEGATIVE); COLOR, URINE YELLOW (YELLOW); GLUCOSE, URINE (UA) AUTO NEGATIVE (NEGATIVE); KETONE, URINE AUTO NEGATIVE (NEGATIVE); LEUKOCYTE ESTERASE, URINE AUTO 2+ (NEGATIVE); NITRITE, URINE AUTO NEGATIVE (NEGATIVE); PROTEIN, URINE AUTO NEGATIVE (NEGATIVE); RBC, URINE AUTO 4 /HPF (0-3); SPECIFIC GRAVITY URINE AUTO 1.006 (1.002-1.035); SQUAMOUS EPITHELIAL CELL UR AU 2 /HPF (0-6); UROBILINOGEN, URINE AUTO 0.2 mg/dL (0.0-2.0); WBC, URINE AUTO 2 /HPF (0-3)
== END ==
LOC: M ADAMS 09:02
PROVIDERS: ATTEND Urology
DX: C67.9 Malignant neoplasm of bladder, unspecified (principal)

== ENCOUNTER → 2021-07-20 | Outpatient (CLI) | payer MEDICARE, OTHER ==
[~2021-07-20] MED LIST changes: +ISOVUE-370 76% 100ML VIAL As Ordered ONE
== END ==
LOC: M RAD 11:55
PROVIDERS: ATTEND Specialist
DX: C34.90 Malignant neoplasm of unspecified part of unspecified bronchus or lung (principal); R59.0 Localized enlarged lymph nodes; J47.9 Bronchiectasis, uncomplicated; Z92.3 Personal history of irradiation; J32.9 Chronic sinusitis, unspecified
CPT/HCPCS: 70491; 71260; 74177; Q9967

== ENCOUNTER → 2021-07-27 | Outpatient (CLI) | payer MEDICARE, OTHER ==
[~2021-07-27] MED LIST changes: -ISOVUE-370 76% 100ML VIAL As Ordered ONE; +SYNT175T2 PO
== END ==
LOC: M ADAMS 14:14
PROVIDERS: ATTEND Internal Medicine Endocrinology, Diabetes & Metabolism
DX: M81.0 Age-related osteoporosis without current pathological fracture (principal)

== ENCOUNTER → 2021-08-14 | Outpatient (REF) | payer MEDICARE, OTHER | LOC: M SMT 17:11 | PROVIDERS: ATTEND Urology | DX: C67.9 Malignant neoplasm of bladder, unspecified (principal) ==

== ENCOUNTER → 2021-08-27 | Outpatient (CLI) | payer MEDICARE, OTHER ==
[2021-08-27 13:34] LABS: CALCIUM LEVEL 9.1 MG/DL (8.8-10.2); FREE T4 1.47 NG/DL (0.76-1.46); THYROID STIMULATING HORMONE < 0.005 uIU/ML (0.358-3.740)
== END ==
LOC: M ADAMS 09:33
PROVIDERS: ATTEND Internal Medicine Endocrinology, Diabetes & Metabolism
DX: E03.9 Hypothyroidism, unspecified (principal); M81.0 Age-related osteoporosis without current pathological fracture

== ENCOUNTER → 2021-09-29 | Outpatient (CLI) | payer MEDICARE, OTHER | LOC: M ADAMS 10:34 | PROVIDERS: ATTEND Nurse Practitioner Family | DX: M81.0 Age-related osteoporosis without current pathological fracture (principal) ==

== ENCOUNTER → 2021-10-28 | Outpatient (CLI) | payer MEDICARE, OTHER ==
[~2021-10-28] MED LIST changes: +LEVO1TAB40 PO; -LEVO750T13 PO
== END ==
LOC: M ADAMS 11:31
PROVIDERS: ATTEND Internal Medicine Endocrinology, Diabetes & Metabolism
DX: M81.0 Age-related osteoporosis without current pathological fracture (principal); E03.9 Hypothyroidism, unspecified; E58 Dietary calcium deficiency

== ENCOUNTER → 2021-11-10 | Outpatient (CLI) | payer MEDICARE, OTHER ==
[~2021-11-10] MED LIST changes: +ISOVUE-370 76% 100ML VIAL As Ordered ONE
== END ==
LOC: M RAD 07:23
PROVIDERS: ATTEND Psychiatry & Neurology Neurology
DX: I67.1 Cerebral aneurysm, nonruptured (principal); R42 Dizziness and giddiness; R40.4 Transient alteration of awareness; F51.01 Primary insomnia; G31.84 Mild cognitive impairment of uncertain or unknown etiology; G60.3 Idiopathic progressive neuropathy; G44.89 Other headache syndrome
CPT/HCPCS: 70496; 70498; 70551; Q9967

== ENCOUNTER → 2021-11-16 | Outpatient (REF) | payer MEDICARE, OTHER ==
[~2021-11-16] MED LIST changes: +ALBU6.7H6 INH; -ISOVUE-370 76% 100ML VIAL As Ordered ONE; -PROV108A INH
== END ==
LOC: M SMT 12:52
PROVIDERS: ATTEND Urology
DX: C67.9 Malignant neoplasm of bladder, unspecified (principal)

== ENCOUNTER → 2021-12-03 | Outpatient (REF) | payer MEDICARE, OTHER | LOC: M LABDRWAD 12:39 | PROVIDERS: ATTEND Internal Medicine Endocrinology, Diabetes & Metabolism | DX: M81.0 Age-related osteoporosis without current pathological fracture (principal) ==

== ENCOUNTER → 2022-01-04 | Outpatient (CLI) | payer MEDICARE, OTHER ==
[2022-01-04 13:10] LABS: BLOOD UREA NITROGEN 15 MG/DL (7-18); CALCIUM LEVEL 9.3 MG/DL (8.8-10.2); CARBON DIOXIDE LEVEL 27 MEQ/L (21-32); CHLORIDE LEVEL 109 MEQ/L (98-107); CREATININE FOR GFR 0.94 MG/DL (0.55-1.30); GLOMERULAR FILTRATION RATE > 60.0 (>39); GLUCOSE, FASTING 109 MG/DL (70-100); SODIUM LEVEL 142 MEQ/L (136-145)
[2022-01-04 13:56] LABS: TOTAL 25(OH) VITAMIN D 49.8 NG/ML (30.0-100.0)
== END ==
LOC: M LAB 11:42
PROVIDERS: ATTEND Nurse Practitioner Family
DX: M81.0 Age-related osteoporosis without current pathological fracture (principal)

== ENCOUNTER → 2022-02-04 | Outpatient (REF) | payer MEDICARE, OTHER | LOC: M LABDRWAD 09:08 | PROVIDERS: ATTEND Internal Medicine Endocrinology, Diabetes & Metabolism | DX: E58 Dietary calcium deficiency (principal) ==

== ENCOUNTER → 2022-04-07 | Outpatient (REF) | payer MEDICARE, OTHER ==
[~2022-04-07] MED LIST changes: +LEVO150T7 PO; +NOXI1TAB PO
== END ==
LOC: M LABDRWAD 17:19
PROVIDERS: ATTEND Internal Medicine Endocrinology, Diabetes & Metabolism
DX: M81.0 Age-related osteoporosis without current pathological fracture (principal)

== ENCOUNTER → 2022-04-26 | Outpatient (CLI) | payer MEDICARE, OTHER ==
[~2022-04-26] MED LIST changes: +CIPR-249 PO; +ISOVUE-370 76% 100ML VIAL As Ordered ONE; +OXYB-54 PO; +OXYC1TAB23 PO
== END ==
LOC: M RAD 12:53
PROVIDERS: ATTEND Specialist
DX: C34.12 Malignant neoplasm of upper lobe, left bronchus or lung (principal); I31.39 Other pericardial effusion (noninflammatory); I70.0 Atherosclerosis of aorta; I25.10 Atherosclerotic heart disease of native coronary artery without angina pectoris; Z98.82 Breast implant status; J43.2 Centrilobular emphysema; Z90.2 Acquired absence of lung [part of]; M41.85 Other forms of scoliosis, thoracolumbar region; M41.86 Other forms of scoliosis, lumbar region; N39.0 Urinary tract infection, site not specified
CPT/HCPCS: 71260; 81000; 87086; Q9967

== ENCOUNTER → 2022-04-26 | Outpatient (REF) | payer MEDICARE, OTHER ==
[~2022-04-26] MED LIST changes: -CIPR-249 PO; -ISOVUE-370 76% 100ML VIAL As Ordered ONE; -OXYB-54 PO; -OXYC1TAB23 PO
[2022-04-26 15:02] LABS: APPEARANCE, URINE MANUAL HAZY (CLEAR); COLOR, URINE MANUAL YELLOW (YELLOW)
[2022-04-26 15:05] LABS: BILIRUBIN, URINE MANUAL 1+ (NEGATIVE); BLOOD URINE MANUAL POSITIVE (NEGATIVE); GLUCOSE, URINE (UA) MANUAL NEGATIVE (NEGATIVE); KETONE, URINE MANUAL 1+ mg/dL (NEGATIVE); LEUKOCYTE ESTERASE, URINE MAN TRACE (NEGATIVE); NITRITE, URINE MANUAL NEGATIVE (NEGATIVE); PROTEIN, URINE MANUAL 1+ mg/dL (NEGATIVE); UROBILINOGEN, URINE MANUAL NORMAL (NORMAL)
[2022-04-26 15:20] LABS: AMORPHOUS SEDIMENT, URINE SMALL AMOUNT (NEGATIVE); BACTERIA, URINE SMALL AMOUNT; CALCIUM OXALATE CRYSTALS,URINE LARGE AMOUNT /hpf; HYALINE CAST, URINE NONE SEEN /lpf (0-1); RBC, URINE TNTC /hpf (0-3); SQUAMOUS EPITHELIAL CELL URINE SMALL AMOUNT /hpf (SMALL AMT)
== END ==
LOC: M SMT 13:30
PROVIDERS: ATTEND Urology
DX: N39.0 Urinary tract infection, site not specified (principal)

== ENCOUNTER → 2022-05-04 | Outpatient (REF) | payer MEDICARE, OTHER ==
[~2022-05-04] MED LIST changes: +CIPR-249 PO; +OXYB-54 PO; +OXYC1TAB23 PO
== END ==
LOC: M SMT 17:08
PROVIDERS: ATTEND Urology
DX: C67.9 Malignant neoplasm of bladder, unspecified (principal)

== ENCOUNTER → 2022-05-12 | Outpatient (REF) | payer MEDICARE, OTHER ==
[~2022-05-12] MED LIST changes: -CIPR-249 PO; -OXYB-54 PO; -OXYC1TAB23 PO
[2022-05-12 16:49] LABS: CALCIUM LEVEL 9.5 MG/DL (8.3-10.6)
[2022-05-12 16:54] LABS: TOTAL 25(OH) VITAMIN D 42.2 NG/ML (20.0-100.0)
== END ==
LOC: M LABDRWAD 16:10
PROVIDERS: ATTEND Internal Medicine Endocrinology, Diabetes & Metabolism
DX: M81.0 Age-related osteoporosis without current pathological fracture (principal)

== ENCOUNTER → 2022-05-20 | Outpatient (CLI) | payer MEDICARE, OTHER | LOC: M WHC 13:49 | PROVIDERS: ATTEND Internal Medicine Endocrinology, Diabetes & Metabolism | DX: M81.0 Age-related osteoporosis without current pathological fracture (principal); C67.9 Malignant neoplasm of bladder, unspecified; N28.89 Other specified disorders of kidney and ureter; N39.0 Urinary tract infection, site not specified ==

== ENCOUNTER → 2022-05-20 | Outpatient (CLI) | payer MEDICARE, OTHER | LOC: M EKG 14:48 | PROVIDERS: ATTEND Urology | DX: C67.9 Malignant neoplasm of bladder, unspecified (principal); N28.89 Other specified disorders of kidney and ureter; N39.0 Urinary tract infection, site not specified ==

== ENCOUNTER → 2022-05-24 | Outpatient (CLI) | payer MEDICARE, OTHER ==
[~2022-05-24] MED LIST changes: +CIPR-249 PO; +ISOVUE-370 76% 100ML VIAL As Ordered ONE; +OXYB-54 PO; +OXYC1TAB23 PO
== END ==
LOC: M RAD 07:02
PROVIDERS: ATTEND Urology
DX: Z01.812 Encounter for preprocedural laboratory examination (principal); C67.9 Malignant neoplasm of bladder, unspecified; N28.89 Other specified disorders of kidney and ureter; Z20.822 Contact with and (suspected) exposure to COVID-19
CPT/HCPCS: 74178; 87635; Q9967

== ENCOUNTER → 2022-05-24 | Outpatient (CLI) | payer MEDICARE, OTHER ==
[~2022-05-24] MED LIST changes: -ISOVUE-370 76% 100ML VIAL As Ordered ONE
== END ==
LOC: M LABSMTC 08:38
PROVIDERS: ATTEND Anesthesiology
DX: Z01.812 Encounter for preprocedural laboratory examination (principal); Z20.822 Contact with and (suspected) exposure to COVID-19

== ENCOUNTER → 2022-05-26 | Day surgery (SDC) | payer MEDICARE, OTHER ==
[~2022-05-26] VITALS: Ht 177.8 cm; Wt 67.6 kg
[~2022-05-26] MED LIST changes: +ACETAMINOPHEN 1000MG 100ML IV BAG As Ordered ONE; +HYDROMORPHONE HCL 0.5 MG/ 0.5 ML SYRINGE IV PRN; +ISOVUE-300 61% 100ML VIAL As Ordered ONE; +LIDOCAINE 2% 100MG/5ML SDV (FOR ANES.) As Ordered ONE; +LR 1,000 ML IV SCH; +MIDAZOLAM INJ 2MG/2ML VIAL As Ordered ONE; +ONDANSETRON 4MG 2ML VIAL As Ordered ONE; +ONDANSETRON 4MG 2ML VIAL IV PRN; +ROCURONIUM BROMIDE 50MG/5ML VIAL As Ordered ONE; +SUGAMMADEX SODIUM 500 MG/5 ML VIAL (BRIDION) As Ordered ONE; +ceFAZolin SOD 2 GM in IV 1 EA IV ONE; +fentaNYL 100 MCG/2 ML INJECTION As Ordered ONE; +fentaNYL 100 MCG/2 ML INJECTION IV PRN; +oxyCODONE 5MG TAB PO PRN; +propofoL 200 MG/20 ML VIAL As Ordered ONE
[2022-05-26 15:15] VITALS: BP 145/71
== END | disposition home or self-care (01) ==
LOC: M SDC 08:23
PROVIDERS: ATTEND Urology
DX: C67.9 Malignant neoplasm of bladder, unspecified (principal); E78.5 Hyperlipidemia, unspecified; I73.9 Peripheral vascular disease, unspecified; E03.9 Hypothyroidism, unspecified; Z87.891 Personal history of nicotine dependence; K57.92 Diverticulitis of intestine, part unspecified, without perforation or abscess without bleeding; Z86.73 Personal history of transient ischemic attack (TIA), and cerebral infarction without residual deficits; Z92.21 Personal history of antineoplastic chemotherapy; Z92.3 Personal history of irradiation; Z79.899 Other long term (current) drug therapy; F32.A Depression, unspecified; M81.0 Age-related osteoporosis without current pathological fracture; Z79.01 Long term (current) use of anticoagulants
CPT/HCPCS: 52234; 52332; 74420; 88305; C2617; J0131; J0690; J1100; J2250; J2405; J3010; Q9967

== ENCOUNTER → 2022-06-10 | Outpatient (REF) | payer MEDICARE, OTHER ==
[~2022-06-10] MED LIST changes: -ACETAMINOPHEN 1000MG 100ML IV BAG As Ordered ONE; -HYDROMORPHONE HCL 0.5 MG/ 0.5 ML SYRINGE IV PRN; -ISOVUE-300 61% 100ML VIAL As Ordered ONE; -LIDOCAINE 2% 100MG/5ML SDV (FOR ANES.) As Ordered ONE; -LR 1,000 ML IV SCH; -MIDAZOLAM INJ 2MG/2ML VIAL As Ordered ONE; -ONDANSETRON 4MG 2ML VIAL As Ordered ONE; -ONDANSETRON 4MG 2ML VIAL IV PRN; -ROCURONIUM BROMIDE 50MG/5ML VIAL As Ordered ONE; -SUGAMMADEX SODIUM 500 MG/5 ML VIAL (BRIDION) As Ordered ONE; -ceFAZolin SOD 2 GM in IV 1 EA IV ONE; -fentaNYL 100 MCG/2 ML INJECTION As Ordered ONE; -fentaNYL 100 MCG/2 ML INJECTION IV PRN; -oxyCODONE 5MG TAB PO PRN; -propofoL 200 MG/20 ML VIAL As Ordered ONE
== END ==
LOC: M LABDRWAD 16:01
PROVIDERS: ATTEND Internal Medicine Endocrinology, Diabetes & Metabolism
DX: M81.0 Age-related osteoporosis without current pathological fracture (principal)

== ENCOUNTER → 2022-07-15 | Outpatient (REF) | payer MEDICARE, OTHER ==
[2022-07-15 16:39] LABS: APPEARANCE, URINE CLEAR (CLEAR); BACTERIA, URINE AUTO NEGATIVE (NEGATIVE); BILIRUBIN, URINE AUTO NEGATIVE (NEGATIVE); BLOOD, URINE BLOOD 1+ (NEGATIVE); COLOR, URINE STRAW (YELLOW); GLUCOSE, URINE (UA) AUTO NEGATIVE (NEGATIVE); KETONE, URINE AUTO NEGATIVE (NEGATIVE); LEUKOCYTE ESTERASE, URINE AUTO NEGATIVE (NEGATIVE); NITRITE, URINE AUTO NEGATIVE (NEGATIVE); PROTEIN, URINE AUTO NEGATIVE (NEGATIVE); RBC, URINE AUTO 3 /HPF (0-3); SPECIFIC GRAVITY URINE AUTO 1.006 (1.002-1.035); SQUAMOUS EPITHELIAL CELL UR AU 0 /HPF (0-6); UROBILINOGEN, URINE AUTO 0.2 mg/dL (0.0-2.0); WBC, URINE AUTO 1 /HPF (0-3)
[2022-07-15 17:16] LABS: HEMATOCRIT 33.9 % (36.0-47.0); HEMOGLOBIN 10.6 g/dl (12.0-15.5); MEAN CORPUSCULAR HEMOGLOBIN 30.5 pg (27.0-33.0); MEAN CORPUSCULAR HGB CONC 31.3 g/dl (32.0-36.5); MEAN CORPUSCULAR VOLUME 97.4 fl (80.0-96.0); PLATELET COUNT, AUTOMATED 245 10^3/uL (150-450); RED BLOOD COUNT 3.48 10^6/uL (4.00-5.40); WHITE BLOOD COUNT 4.9 10^3/uL (4.0-10.0)
[2022-07-15 17:22] LABS: ALBUMIN 3.3 G/DL (3.2-5.2); ALKALINE PHOSPHATASE 111 U/L (46-116); ALT/SGPT 11 U/L (7.0-40); AST/SGOT 20 U/L (<34); BILIRUBIN,TOTAL 0.2 MG/DL (0.3-1.2); BLOOD UREA NITROGEN 15 MG/DL (9-23); CALCIUM LEVEL 9.2 MG/DL (8.3-10.6); CARBON DIOXIDE LEVEL 28 MMOL/L (20-31); CHLORIDE LEVEL 105 MMOL/L (98-107); CREATININE FOR GFR 0.93 MG/DL (0.55-1.30); GLOMERULAR FILTRATION RATE > 60.0 (>39); GLUCOSE, FASTING 81 MG/DL (74-106); POTASSIUM SERUM 5.2 MMOL/L (3.5-5.1); SODIUM LEVEL 139 MMOL/L (136-145); TOTAL PROTEIN 6.6 G/DL (5.7-8.2)
== END ==
LOC: M LABDRWAD 16:13
PROVIDERS: ATTEND Urology
DX: C67.9 Malignant neoplasm of bladder, unspecified (principal)

== ENCOUNTER → 2022-07-19 | Outpatient (CLI) | payer MEDICARE, OTHER ==
[~2022-07-19] MED LIST changes: +GASTROGRAFIN SOLUTION 30ML As Ordered ONE; +ISOVUE-370 76% 100ML VIAL As Ordered ONE
== END ==
LOC: M RAD 10:40
PROVIDERS: ATTEND Internal Medicine Hematology & Oncology
DX: C34.91 Malignant neoplasm of unspecified part of right bronchus or lung (principal); C67.9 Malignant neoplasm of bladder, unspecified; K57.30 Diverticulosis of large intestine without perforation or abscess without bleeding; M19.90 Unspecified osteoarthritis, unspecified site; M85.80 Other specified disorders of bone density and structure, unspecified site; J43.2 Centrilobular emphysema; I70.0 Atherosclerosis of aorta; I25.10 Atherosclerotic heart disease of native coronary artery without angina pectoris
CPT/HCPCS: 70491; 71260; 74177; Q9967

== ENCOUNTER → 2022-07-27 | Outpatient (REF) | payer MEDICARE, OTHER ==
[~2022-07-27] MED LIST changes: -GASTROGRAFIN SOLUTION 30ML As Ordered ONE; -ISOVUE-370 76% 100ML VIAL As Ordered ONE
[2022-07-27 16:35] LABS: APPEARANCE, URINE CLEAR (CLEAR); BACTERIA, URINE AUTO NEGATIVE (NEGATIVE); BILIRUBIN, URINE AUTO NEGATIVE (NEGATIVE); BLOOD, URINE BLOOD 1+ (NEGATIVE); COLOR, URINE YELLOW (YELLOW); GLUCOSE, URINE (UA) AUTO NEGATIVE (NEGATIVE); KETONE, URINE AUTO NEGATIVE (NEGATIVE); LEUKOCYTE ESTERASE, URINE AUTO TRACE (NEGATIVE); NITRITE, URINE AUTO NEGATIVE (NEGATIVE); PROTEIN, URINE AUTO NEGATIVE (NEGATIVE); RBC, URINE AUTO 1 /HPF (0-3); SPECIFIC GRAVITY URINE AUTO 1.005 (1.002-1.035); SQUAMOUS EPITHELIAL CELL UR AU 1 /HPF (0-6); UROBILINOGEN, URINE AUTO 0.2 mg/dL (0.0-2.0); WBC, URINE AUTO 2 /HPF (0-3)
== END ==
LOC: M SFHCADAM 13:46
PROVIDERS: ATTEND Urology
DX: C67.9 Malignant neoplasm of bladder, unspecified (principal)

== ENCOUNTER → 2022-08-03 | Outpatient (REF) | payer MEDICARE, OTHER ==
[2022-08-03 17:08] LABS: APPEARANCE, URINE CLEAR (CLEAR); BACTERIA, URINE AUTO NEGATIVE (NEGATIVE); BILIRUBIN, URINE AUTO NEGATIVE (NEGATIVE); BLOOD, URINE BLOOD 1+ (NEGATIVE); COLOR, URINE STRAW (YELLOW); GLUCOSE, URINE (UA) AUTO NEGATIVE (NEGATIVE); KETONE, URINE AUTO NEGATIVE (NEGATIVE); LEUKOCYTE ESTERASE, URINE AUTO NEGATIVE (NEGATIVE); NITRITE, URINE AUTO NEGATIVE (NEGATIVE); PROTEIN, URINE AUTO NEGATIVE (NEGATIVE); RBC, URINE AUTO 0 /HPF (0-3); SPECIFIC GRAVITY URINE AUTO 1.004 (1.002-1.035); SQUAMOUS EPITHELIAL CELL UR AU 0 /HPF (0-6); UROBILINOGEN, URINE AUTO 0.2 mg/dL (0.0-2.0); WBC, URINE AUTO 0 /HPF (0-3)
== END ==
LOC: M SFHCADAM 14:12
PROVIDERS: ATTEND Urology
DX: C67.9 Malignant neoplasm of bladder, unspecified (principal)

== ENCOUNTER → 2022-08-09 | Outpatient (REF) | payer MEDICARE, OTHER ==
[2022-08-09 17:55] LABS: APPEARANCE, URINE CLEAR (CLEAR); BACTERIA, URINE AUTO NEGATIVE (NEGATIVE); BILIRUBIN, URINE AUTO NEGATIVE (NEGATIVE); BLOOD, URINE BLOOD 1+ (NEGATIVE); COLOR, URINE YELLOW (YELLOW); GLUCOSE, URINE (UA) AUTO NEGATIVE (NEGATIVE); KETONE, URINE AUTO NEGATIVE (NEGATIVE); LEUKOCYTE ESTERASE, URINE AUTO TRACE (NEGATIVE); NITRITE, URINE AUTO NEGATIVE (NEGATIVE); PROTEIN, URINE AUTO NEGATIVE (NEGATIVE); RBC, URINE AUTO 2 /HPF (0-3); SPECIFIC GRAVITY URINE AUTO 1.012 (1.002-1.035); SQUAMOUS EPITHELIAL CELL UR AU 0 /HPF (0-6); UROBILINOGEN, URINE AUTO 0.2 mg/dL (0.0-2.0); WBC, URINE AUTO 3 /HPF (0-3)
== END ==
LOC: M SMT 15:56 → M LABDRWAD 15:56
PROVIDERS: ATTEND Urology
DX: C67.9 Malignant neoplasm of bladder, unspecified (principal)

== ENCOUNTER → 2022-08-17 | Outpatient (REF) | payer MEDICARE, OTHER ==
[2022-08-17 16:55] LABS: APPEARANCE, URINE CLEAR (CLEAR); BACTERIA, URINE AUTO NEGATIVE (NEGATIVE); BILIRUBIN, URINE AUTO NEGATIVE (NEGATIVE); BLOOD, URINE BLOOD 1+ (NEGATIVE); COLOR, URINE STRAW (YELLOW); GLUCOSE, URINE (UA) AUTO NEGATIVE (NEGATIVE); KETONE, URINE AUTO NEGATIVE (NEGATIVE); LEUKOCYTE ESTERASE, URINE AUTO NEGATIVE (NEGATIVE); NITRITE, URINE AUTO NEGATIVE (NEGATIVE); PROTEIN, URINE AUTO NEGATIVE (NEGATIVE); RBC, URINE AUTO 0 /HPF (0-3); SPECIFIC GRAVITY URINE AUTO 1.004 (1.002-1.035); SQUAMOUS EPITHELIAL CELL UR AU 0 /HPF (0-6); UROBILINOGEN, URINE AUTO 0.2 mg/dL (0.0-2.0); WBC, URINE AUTO 0 /HPF (0-3)
== END ==
LOC: M SFHCADAM 14:41
PROVIDERS: ATTEND Urology
DX: C67.9 Malignant neoplasm of bladder, unspecified (principal)

== ENCOUNTER → 2022-08-24 | Outpatient (REF) | payer MEDICARE, OTHER ==
[2022-08-24 17:01] LABS: BLOOD UREA NITROGEN 19 MG/DL (9-23); CALCIUM LEVEL 9.5 MG/DL (8.3-10.6); CARBON DIOXIDE LEVEL 28 MMOL/L (20-31); CHLORIDE LEVEL 104 MMOL/L (98-107); CREATININE FOR GFR 0.83 MG/DL (0.55-1.30); GLOMERULAR FILTRATION RATE > 60.0 (>39); GLUCOSE, FASTING 99 MG/DL (74-106); POTASSIUM SERUM 4.1 MMOL/L (3.5-5.1); SODIUM LEVEL 137 MMOL/L (136-145)
== END ==
LOC: M LABDRWAD 15:54
PROVIDERS: ATTEND Internal Medicine Endocrinology, Diabetes & Metabolism
DX: M81.0 Age-related osteoporosis without current pathological fracture (principal); C67.9 Malignant neoplasm of bladder, unspecified

== ENCOUNTER → 2022-08-24 | Outpatient (REF) | payer MEDICARE, OTHER ==
[2022-08-24 16:55] LABS: APPEARANCE, URINE CLEAR (CLEAR); BACTERIA, URINE AUTO NEGATIVE (NEGATIVE); BILIRUBIN, URINE AUTO NEGATIVE (NEGATIVE); BLOOD, URINE BLOOD 2+ (NEGATIVE); COLOR, URINE STRAW (YELLOW); GLUCOSE, URINE (UA) AUTO NEGATIVE (NEGATIVE); KETONE, URINE AUTO NEGATIVE (NEGATIVE); LEUKOCYTE ESTERASE, URINE AUTO NEGATIVE (NEGATIVE); NITRITE, URINE AUTO NEGATIVE (NEGATIVE); PROTEIN, URINE AUTO NEGATIVE (NEGATIVE); RBC, URINE AUTO 1 /HPF (0-3); SPECIFIC GRAVITY URINE AUTO 1.005 (1.002-1.035); SQUAMOUS EPITHELIAL CELL UR AU 0 /HPF (0-6); UROBILINOGEN, URINE AUTO 0.2 mg/dL (0.0-2.0); WBC, URINE AUTO 1 /HPF (0-3)
== END ==
LOC: M SMT 15:56
PROVIDERS: ATTEND Urology
DX: C67.9 Malignant neoplasm of bladder, unspecified (principal)

== ENCOUNTER → 2022-09-17 | Outpatient (CLI) | payer MEDICARE, OTHER ==
[~2022-09-17] MED LIST changes: +FLUT1BLS8 IH
== END ==
LOC: M SOG 08:18
PROVIDERS: ATTEND Physician Assistant
DX: M79.644 Pain in right finger(s) (principal); M79.645 Pain in left finger(s); M19.042 Primary osteoarthritis, left hand; M19.041 Primary osteoarthritis, right hand

== ENCOUNTER → 2022-10-18 | Outpatient (REF) | payer MEDICARE, OTHER | LOC: M SMT 15:09 | PROVIDERS: ATTEND Urology | DX: C67.9 Malignant neoplasm of bladder, unspecified (principal) ==

== ENCOUNTER → 2022-11-11 | Outpatient (CLI) | payer MEDICARE, OTHER ==
[~2022-11-11] MED LIST changes: +DICL100G10 TD; -DICL1GEL3 TD
== END ==
LOC: M RAD 16:42
PROVIDERS: ATTEND Internal Medicine Critical Care Medicine
DX: J43.9 Emphysema, unspecified (principal)

== ENCOUNTER → 2022-11-26 | Outpatient (CLI) | payer MEDICARE, OTHER ==
[~2022-11-26] MED LIST changes: +B-122500 PO; +EZET10TA58 PO; -ZETI10TA16 PO
== END ==
LOC: M EKG 15:19
DX: Z01.818 Encounter for other preprocedural examination (principal); I10 Essential (primary) hypertension

== ENCOUNTER → 2022-12-07 | Outpatient (REF) | payer MEDICARE, OTHER | LOC: M LABDRWAD 12:46 | PROVIDERS: ATTEND Internal Medicine Endocrinology, Diabetes & Metabolism | DX: M81.0 Age-related osteoporosis without current pathological fracture (principal) ==

== ENCOUNTER → 2023-01-17 | Outpatient (CLI) | payer MEDICARE, OTHER ==
[~2023-01-17] MED LIST changes: +PERC5TAB12 PO
== END ==
LOC: M SOG 07:58
PROVIDERS: ATTEND Physician Assistant
DX: M18.11 Unilateral primary osteoarthritis of first carpometacarpal joint, right hand (principal); Z98.890 Other specified postprocedural states

== ENCOUNTER → 2023-01-18 | Outpatient (REF) | payer MEDICARE, OTHER | LOC: M SMT 15:40 | PROVIDERS: ATTEND Urology | DX: C67.9 Malignant neoplasm of bladder, unspecified (principal) ==

== ENCOUNTER → 2023-02-17 | Outpatient (CLI) | payer MEDICARE, OTHER | LOC: M SOG 09:03 | PROVIDERS: ATTEND Physician Assistant | DX: M18.11 Unilateral primary osteoarthritis of first carpometacarpal joint, right hand (principal) ==

== ENCOUNTER 2023-04-13 08:33 | Day surgery (SDC) | payer MEDICARE, OTHER ==
[~2023-04-13] VITALS: Ht 177.8 cm; Wt 61.1 kg
[~2023-04-13 08:33] MED LIST changes: +NS 1,000 ML IV ONE; +SYNT137T7 PO; +VITA100093 PO
[2023-04-13] MEDS ORDERED: LIDOCAINE 2% 100MG/5ML SDV (FOR ANES.) As Ordered ONE (09:44)
[2023-04-13] MEDS ORDERED: propofoL 200 MG/20 ML VIAL As Ordered ONE (09:44)
[2023-04-13] MEDS ORDERED: ePHEDrine SULFATE 25 MG/5 ML(5MG/ML) SYRINGE As Ordered ONE (11:08)
[2023-04-13 11:13] VITALS: TEMP 98
[2023-04-13 11:35] VITALS: BP 105/58; O2SAT 97
== END 2023-04-13 11:45 | disposition home or self-care (01) ==
LOC: M OPP 08:33
PROVIDERS: ATTEND Surgery
DX: K64.4 Residual hemorrhoidal skin tags (principal); K64.8 Other hemorrhoids; K55.20 Angiodysplasia of colon without hemorrhage; K57.30 Diverticulosis of large intestine without perforation or abscess without bleeding; K62.5 Hemorrhage of anus and rectum; R19.4 Change in bowel habit; Z87.891 Personal history of nicotine dependence; Z79.51 Long term (current) use of inhaled steroids; Z79.890 Hormone replacement therapy; Z79.899 Other long term (current) drug therapy; Z88.7 Allergy status to serum and vaccine

== ENCOUNTER → 2023-04-25 | Outpatient (REF) | payer MEDICARE, OTHER ==
[~2023-04-25] MED LIST changes: -NS 1,000 ML IV ONE
== END ==
LOC: M SMT 13:08
PROVIDERS: ATTEND Urology
DX: C67.9 Malignant neoplasm of bladder, unspecified (principal)

== ENCOUNTER → 2023-07-25 | Outpatient (REF) | payer MEDICARE, OTHER | LOC: M SMT 16:57 | PROVIDERS: ATTEND Urology | DX: C67.9 Malignant neoplasm of bladder, unspecified (principal) ==

== ENCOUNTER → 2023-08-01 | Outpatient (CLI) | payer MEDICARE, OTHER ==
[2023-08-01 13:29] LABS: THYROID STIMULATING HORMONE 0.044 uIU/ML (0.55-4.78); TOTAL 25(OH) VITAMIN D 50.1 NG/ML (20.0-100.0)
[2023-08-01 13:30] LABS: FREE T4 1.5 NG/DL (0.89-1.76)
[2023-08-01 13:32] LABS: TOTAL T3 103.7 NG/DL (60.0-181.0)
== END ==
LOC: M PLALAB 11:03
PROVIDERS: ATTEND Internal Medicine Endocrinology, Diabetes & Metabolism
DX: M81.0 Age-related osteoporosis without current pathological fracture (principal); E03.9 Hypothyroidism, unspecified

== ENCOUNTER → 2023-08-02 | Outpatient (CLI) | payer MEDICARE, OTHER ==
[~2023-08-02] MED LIST changes: +ISOVUE-370 76% 100ML VIAL As Ordered ONE
== END ==
LOC: M RAD 17:00
PROVIDERS: ATTEND Specialist
DX: C34.90 Malignant neoplasm of unspecified part of unspecified bronchus or lung (principal); K57.30 Diverticulosis of large intestine without perforation or abscess without bleeding; Z90.710 Acquired absence of both cervix and uterus; I70.0 Atherosclerosis of aorta; J43.9 Emphysema, unspecified; J44.9 Chronic obstructive pulmonary disease, unspecified; R91.8 Other nonspecific abnormal finding of lung field; I25.10 Atherosclerotic heart disease of native coronary artery without angina pectoris; Z95.828 Presence of other vascular implants and grafts
CPT/HCPCS: 70491; 71260; 74177; Q9967

== ENCOUNTER → 2023-08-16 | Outpatient (CLI) | payer MEDICARE, OTHER ==
[~2023-08-16] MED LIST changes: -ISOVUE-370 76% 100ML VIAL As Ordered ONE
== END ==
LOC: M PLARAD 08:51
PROVIDERS: ATTEND Specialist
DX: C34.31 Malignant neoplasm of lower lobe, right bronchus or lung (principal)
CPT/HCPCS: 78815; A9552

== ENCOUNTER → 2023-09-06 | Outpatient (REF) | payer MEDICARE, OTHER ==
[2023-09-06 14:24] LABS: FREE T4 1.54 NG/DL (0.89-1.76); THYROID STIMULATING HORMONE 0.041 uIU/ML (0.55-4.78)
[2023-09-06 14:25] LABS: TOTAL 25(OH) VITAMIN D 60.5 NG/ML (20.0-100.0)
[2023-09-06 14:27] LABS: TOTAL T3 111.2 NG/DL (60.0-181.0)
== END ==
LOC: M LABDRWAD 12:39
PROVIDERS: ATTEND Internal Medicine Endocrinology, Diabetes & Metabolism
DX: M81.0 Age-related osteoporosis without current pathological fracture (principal); E03.9 Hypothyroidism, unspecified

== ENCOUNTER → 2023-11-04 | Outpatient (REF) | payer MEDICARE, OTHER | LOC: M SMT 17:02 | PROVIDERS: ATTEND Urology | DX: C67.9 Malignant neoplasm of bladder, unspecified (principal) ==

== ENCOUNTER → 2023-11-29 | Outpatient (CLI) | payer MEDICARE, OTHER ==
[~2023-11-29] MED LIST changes: +ISOVUE-370 76% 100ML VIAL As Ordered ONE
== END ==
LOC: M RAD 11:57
PROVIDERS: ATTEND Specialist
DX: C34.90 Malignant neoplasm of unspecified part of unspecified bronchus or lung (principal)
CPT/HCPCS: 71260; Q9967

== ENCOUNTER → 2023-12-09 | Outpatient (CLI) | payer MEDICARE, OTHER ==
[~2023-12-09] MED LIST changes: -ISOVUE-370 76% 100ML VIAL As Ordered ONE; +ISOVUE-370 76% 100ML VIAL ONE
== END ==
LOC: M PLAIMG 09:47
PROVIDERS: ATTEND Dietitian, Registered
DX: C34.90 Malignant neoplasm of unspecified part of unspecified bronchus or lung (principal); J43.9 Emphysema, unspecified; K57.30 Diverticulosis of large intestine without perforation or abscess without bleeding; I70.0 Atherosclerosis of aorta; K59.00 Constipation, unspecified
CPT/HCPCS: 74177; Q9967

== ENCOUNTER → 2023-12-23 | Outpatient (CLI) | payer MEDICARE, OTHER ==
[~2023-12-23] MED LIST changes: -ISOVUE-370 76% 100ML VIAL ONE; +LIDOCAINE 1% MDV 20ML VIAL As Ordered ONE; +MIDAZOLAM INJ 2MG/2ML VIAL As Ordered ONE; +NS 1,000 ML IV SCH; +fentaNYL 100 MCG/2 ML INJECTION As Ordered ONE
[2023-12-23 12:50] LABS: HEMOGLOBIN 13.5 g/dl (12.0-15.5); MEAN CORPUSCULAR HEMOGLOBIN 31.9 pg (27.0-33.0); MEAN CORPUSCULAR HGB CONC 32.9 g/dl (32.0-36.5); MEAN CORPUSCULAR VOLUME 96.9 fl (80.0-96.0); PLATELET COUNT, AUTOMATED 238 10^3/uL (150-450); RED BLOOD COUNT 4.23 10^6/uL (4.00-5.40); WHITE BLOOD COUNT 6.9 10^3/uL (4.0-10.0)
[2023-12-23 13:12] LABS: INR 1.04; PROTHROMBIN TIME 13.3 SECONDS (12.5-14.5)
[2023-12-23 15:50] VITALS: BP 111/57; O2SAT 97
== END ==
LOC: M IRPRO 11:31
PROVIDERS: ATTEND Dietitian, Registered
DX: C34.90 Malignant neoplasm of unspecified part of unspecified bronchus or lung (principal); J95.811 Postprocedural pneumothorax; Z79.01 Long term (current) use of anticoagulants
CPT/HCPCS: 32408; 85027; 85610; 88305; 99152; J2250; J3010

== ENCOUNTER → 2024-04-03 | Outpatient (CLI) | payer MEDICARE, OTHER ==
[~2024-04-03] MED LIST changes: +ISOVUE-370 76% 100ML VIAL As Ordered ONE; -LIDOCAINE 1% MDV 20ML VIAL As Ordered ONE; -MIDAZOLAM INJ 2MG/2ML VIAL As Ordered ONE; -NS 1,000 ML IV SCH; -fentaNYL 100 MCG/2 ML INJECTION As Ordered ONE
== END ==
LOC: M RAD 10:08
PROVIDERS: ATTEND Dietitian, Registered
DX: C34.90 Malignant neoplasm of unspecified part of unspecified bronchus or lung (principal); R91.8 Other nonspecific abnormal finding of lung field
CPT/HCPCS: 71260; Q9967

== ENCOUNTER → 2024-05-18 | Outpatient (REF) | payer MEDICARE, OTHER ==
[~2024-05-18] MED LIST changes: -ISOVUE-370 76% 100ML VIAL As Ordered ONE
== END ==
LOC: M SMT 17:19
PROVIDERS: ATTEND Urology
DX: C67.9 Malignant neoplasm of bladder, unspecified (principal)

== ENCOUNTER → 2024-06-01 | Outpatient (CLI) | payer MEDICARE, OTHER | LOC: M WHC 12:57 | PROVIDERS: ATTEND Nurse Practitioner Family | DX: M81.0 Age-related osteoporosis without current pathological fracture (principal) ==

== ENCOUNTER 2024-09-24 15:02 | Emergency (ER) | payer MEDICARE, OTHER ==
[~2024-09-24] VITALS: Ht 177.8 cm; Wt 59.7 kg
[~2024-09-24 15:02] MED LIST changes: -EQL50TAB2 PO; +IPRA3SP; +LEVO125T4 PO; +VENTAER INH; +VITA1TAB82 PO
[2024-09-24 18:06] LABS: BASO # 0.0 10^3/uL (0.0-0.2); BASO % 0.4 % (0.0-1.0); EOS # 0.1 10^3/uL (0.0-0.5); EOS % 1.2 % (0.0-3.0); LYMPH # 0.9 10^3/uL (1.5-5.0); LYMPH % 13.3 % (24.0-44.0); MONO # 0.8 10^3/uL (0.0-0.8); MONO % 11.6 % (2.0-8.0); NEUTROPHILS # 4.9 10^3/uL (1.5-8.5); NEUTROPHILS % 73.2 % (36.0-66.0); PLATELET COUNT, AUTOMATED 199 10^3/uL (150-450)
[2024-09-24 18:17] LABS: INR 1.06
[2024-09-24 18:46] LABS: ALT/SGPT 13.0 U/L (7.0-40); AST/SGOT 17.0 U/L (<34); CALCIUM LEVEL 9.7 MG/DL (8.3-10.6); CARBON DIOXIDE LEVEL 26.0 MMOL/L (20-31); CHLORIDE LEVEL 99.0 MMOL/L (98-107); CREATININE FOR GFR 0.96 MG/DL (0.55-1.30); FREE T4 1.67 NG/DL (0.89-1.76); GLOMERULAR FILTRATION RATE 62.1 (>39); POTASSIUM SERUM 4.3 MMOL/L (3.5-5.1); SODIUM LEVEL 136.0 MMOL/L (136-145)
[2024-09-24 19:17] VITALS: BP 123/63; TEMP 98.8; O2SAT 92
== END 2024-09-24 19:24 | disposition home or self-care (01) ==
LOC: M ED 15:02
DX: R53.83 Other fatigue (principal); R53.81 Other malaise; M79.7 Fibromyalgia; K57.92 Diverticulitis of intestine, part unspecified, without perforation or abscess without bleeding; E03.9 Hypothyroidism, unspecified; F32.A Depression, unspecified; Z86.718 Personal history of other venous thrombosis and embolism; Z87.891 Personal history of nicotine dependence; Z86.79 Personal history of other diseases of the circulatory system; Z79.01 Long term (current) use of anticoagulants; Z79.899 Other long term (current) drug therapy; Z88.7 Allergy status to serum and vaccine

== ENCOUNTER → 2024-10-01 | Outpatient (CLI) | payer MEDICARE, OTHER ==
[~2024-10-01] MED LIST changes: +ISOVUE-370 76% 100 ML VIAL As Ordered ONE
== END ==
LOC: M RAD 08:10
PROVIDERS: ATTEND Internal Medicine Medical Oncology
DX: C34.90 Malignant neoplasm of unspecified part of unspecified bronchus or lung (principal); K76.89 Other specified diseases of liver; N28.1 Cyst of kidney, acquired; K57.30 Diverticulosis of large intestine without perforation or abscess without bleeding; I70.0 Atherosclerosis of aorta; M41.9 Scoliosis, unspecified; M51.379 Other intervertebral disc degeneration, lumbosacral region without mention of lumbar back pain or lower extremity pain; R91.8 Other nonspecific abnormal finding of lung field
CPT/HCPCS: 71260; 74177; Q9967

== ENCOUNTER 2024-10-15 10:28 | Day surgery (SDC) | payer MEDICARE, OTHER ==
[~2024-10-15] VITALS: Ht 177.8 cm; Wt 59.9 kg
[~2024-10-15 10:28] MED LIST changes: +CYCLOPENTOLATE 1% OPHTH SOLN 2 ML BTL OD SCH; +FLURBIPROFEN 0.03% OPHTH SOLN 2.5 ML OD SCH; -ISOVUE-370 76% 100 ML VIAL As Ordered ONE; +LEVO1TAB39 PO; +LR 1,000 ML IV SCH; +PHENYLEPHRINE 2.5% OPHTH SOL 2ML OD SCH; +TETRACAINE 0.5% OPHTH SOLN 4ML OD SCH
[2024-10-15] MEDS ORDERED: MIDAZOLAM INJ 2 MG/2 ML VIAL As Ordered ONE (12:59)
[2024-10-15] MEDS: LIDOCAINE 1% SDV 5 ML VIAL As Ordered ONE (13:37)
[2024-10-15] MEDS: CEFUROXIME 1 MG/0.1 ML INTRACAMERAL INJ As Ordered ONE (13:37)
[2024-10-15 14:01] VITALS: BP 135/71; TEMP 97.2; O2SAT 96
== END 2024-10-15 14:17 | disposition home or self-care (01) ==
LOC: M SDC 10:28
PROVIDERS: ATTEND Ophthalmology
DX: H25.11 Age-related nuclear cataract, right eye (principal); E03.9 Hypothyroidism, unspecified; E78.00 Pure hypercholesterolemia, unspecified; Z79.899 Other long term (current) drug therapy; Z79.01 Long term (current) use of anticoagulants; Z79.890 Hormone replacement therapy; Z86.73 Personal history of transient ischemic attack (TIA), and cerebral infarction without residual deficits; Z86.79 Personal history of other diseases of the circulatory system; Z90.89 Acquired absence of other organs; Z87.891 Personal history of nicotine dependence
CPT/HCPCS: 66984; J0697; J2250; J3010; V2632

== ENCOUNTER → 2024-10-30 | Outpatient (CLI) | payer MEDICARE, OTHER ==
[~2024-10-30] MED LIST changes: -CYCLOPENTOLATE 1% OPHTH SOLN 2 ML BTL OD SCH; -FLURBIPROFEN 0.03% OPHTH SOLN 2.5 ML OD SCH; -LR 1,000 ML IV SCH; -PHENYLEPHRINE 2.5% OPHTH SOL 2ML OD SCH; -TETRACAINE 0.5% OPHTH SOLN 4ML OD SCH
== END ==
LOC: M PLAIMG 09:27
PROVIDERS: ATTEND Internal Medicine Pulmonary Disease
DX: R91.8 Other nonspecific abnormal finding of lung field (principal); J98.11 Atelectasis; J43.2 Centrilobular emphysema

== ENCOUNTER → 2024-11-02 | Outpatient (CLI) | payer MEDICARE, OTHER | LOC: M SOG 06:53 | PROVIDERS: ATTEND Neuromusculoskeletal Medicine, Sports Medicine | DX: M25.562 Pain in left knee (principal); M17.12 Unilateral primary osteoarthritis, left knee ==

== ENCOUNTER → 2024-11-16 | Outpatient (REF) | payer MEDICARE, OTHER | LOC: M LAB REF 17:03 | PROVIDERS: ATTEND Internal Medicine Pulmonary Disease | DX: R91.8 Other nonspecific abnormal finding of lung field (principal) ==

== ENCOUNTER → 2024-11-20 | Outpatient (CLI) | payer MEDICARE, OTHER | LOC: M PLARAD 12:11 | PROVIDERS: ATTEND Internal Medicine Pulmonary Disease | DX: R91.8 Other nonspecific abnormal finding of lung field (principal) | CPT/HCPCS: 78815; A9552 ==

== ENCOUNTER → 2024-11-30 | Outpatient (REF) | payer MEDICARE, OTHER | LOC: M SMT 17:19 | PROVIDERS: ATTEND Urology | DX: C67.9 Malignant neoplasm of bladder, unspecified (principal) ==

== ENCOUNTER 2024-12-14 12:53 | Emergency (ER) | payer MEDICARE, OTHER ==
[~2024-12-14] VITALS: Ht 177.8 cm; Wt 61.4 kg
[2024-12-14] MEDS: ACETAMINOPHEN *IV* 1,000 MG in IV 1 EA IV ONE (18:53)
[2024-12-14 18:58] LABS: BASO # 0.1 10^3/uL (0.0-0.2); BASO % 0.8 % (0.0-1.0); EOS # 0.1 10^3/uL (0.0-0.5); EOS % 0.8 % (0.0-3.0); LYMPH # 1.3 10^3/uL (1.5-5.0); LYMPH % 20.8 % (24.0-44.0); MONO # 0.4 10^3/uL (0.0-0.8); MONO % 6.3 % (2.0-8.0); NEUTROPHILS # 4.4 10^3/uL (1.5-8.5); NEUTROPHILS % 71.0 % (36.0-66.0); PLATELET COUNT, AUTOMATED 250 10^3/uL (150-450)
[2024-12-14 19:04] LABS: ERYTHROCYTE SEDIMENTATION RATE 51 mm/hr (0-30)
[2024-12-14 19:46] LABS: C REACTIVE PROTEIN QUANTITATIV < 0.50 MG/DL (<1.0); CALCIUM LEVEL 9.4 MG/DL (8.3-10.6); CARBON DIOXIDE LEVEL 28 MMOL/L (20-31); CHLORIDE LEVEL 105 MMOL/L (98-107); CREATININE FOR GFR 0.74 MG/DL (0.55-1.30); GLOMERULAR FILTRATION RATE 84.9 (>39); POTASSIUM SERUM 4.7 MMOL/L (3.5-5.1); SODIUM LEVEL 141 MMOL/L (136-145)
[2024-12-14 20:29] VITALS: BP 154/96; TEMP 98.6; O2SAT 99
== END 2024-12-14 20:30 | disposition home or self-care (01) ==
LOC: M ED 12:53
DX: M25.551 Pain in right hip (principal); M16.11 Unilateral primary osteoarthritis, right hip; M25.751 Osteophyte, right hip; M65.251 Calcific tendinitis, right thigh; M51.369 Other intervertebral disc degeneration, lumbar region without mention of lumbar back pain or lower extremity pain; M47.816 Spondylosis without myelopathy or radiculopathy, lumbar region; Z85.118 Personal history of other malignant neoplasm of bronchus and lung; Z85.51 Personal history of malignant neoplasm of bladder; Z86.718 Personal history of other venous thrombosis and embolism; Z79.01 Long term (current) use of anticoagulants; Z79.899 Other long term (current) drug therapy; Z88.7 Allergy status to serum and vaccine
CPT/HCPCS: 73502; 73700; 80048; 85025; 85652; 86140; 93971; 96374; 99284; J0131

== ENCOUNTER → 2024-12-19 | Outpatient (CLI) | payer MEDICARE, OTHER ==
[2024-12-19 16:06] LABS: PLATELET COUNT, AUTOMATED 191 10^3/uL (150-450)
[2024-12-19 16:17] LABS: INR 1.04
== END ==
LOC: M LAB 15:22
PROVIDERS: ATTEND Internal Medicine Pulmonary Disease
DX: R91.8 Other nonspecific abnormal finding of lung field (principal); Z79.01 Long term (current) use of anticoagulants

== ENCOUNTER → 2024-12-25 | Outpatient (CLI) | payer MEDICARE, OTHER ==
[~2024-12-25] MED LIST changes: +LIDOCAINE 1% MDV 20 ML VIAL SC STA; +MIDAZOLAM INJ 2 MG/2 ML VIAL IV PRN; +NS (Normal Saline) 0.9% 1,000 ML IV SCH
[2024-12-25 11:35] VITALS: BP 168/81; TEMP 98.7; O2SAT 97
== END ==
LOC: M IRPRO 11:10
PROVIDERS: ATTEND Internal Medicine Pulmonary Disease
DX: R91.8 Other nonspecific abnormal finding of lung field (principal); F17.200 Nicotine dependence, unspecified, uncomplicated

== ENCOUNTER → 2024-12-27 | Outpatient (CLI) | payer MEDICARE, OTHER ==
[~2024-12-27] MED LIST changes: -LIDOCAINE 1% MDV 20 ML VIAL SC STA; -MIDAZOLAM INJ 2 MG/2 ML VIAL IV PRN; -NS (Normal Saline) 0.9% 1,000 ML IV SCH
== END ==
LOC: M RAD 08:01
PROVIDERS: ATTEND Internal Medicine Pulmonary Disease
DX: R91.8 Other nonspecific abnormal finding of lung field (principal)

== ENCOUNTER → 2024-12-28 | Outpatient (REF) | payer MEDICARE, OTHER | LOC: M LAB REF 16:48 | PROVIDERS: ATTEND Internal Medicine Pulmonary Disease | DX: R91.8 Other nonspecific abnormal finding of lung field (principal) ==

== ENCOUNTER → 2024-12-31 | Outpatient (REF) | payer MEDICARE, OTHER ==
[2024-12-31 13:47] LABS: FREE T4 1.45 NG/DL (0.89-1.76)
== END ==
LOC: M LABDRWAD 12:58
PROVIDERS: ATTEND Nurse Practitioner Family
DX: E03.9 Hypothyroidism, unspecified (principal)